=== PATIENT | female | born 1960 | race Caucasian/White ===

== ENCOUNTER 2022-06-01 17:52 | Emergency (ER) | payer BC ==
--- OUTSIDE RECORDS SUMMARY | 2022-06-01 17:56 | XMS REPORT | Continuity of Care Document ---
:1960 Author Organization [facility] t Address [address] [place] [address] Care Team Providers Name Role Phone ALEXY DE LEÓN Primary Care Physician Unavailable Jen Montoya Attending Clinician Unavailable TABATHA ANDERSEN Attending Clinician Unavailable JENIFFER VREGARA Attending Clinician Unavailable RADIOLOGY Attending Clinician Unavailable Radiology Attending Clinician Unavailable TONY VAZQUEZ Attending Clinician Unavailable Alexy De León V Attending Clinician Unavailable JNUIOR HAILE III Attending Clinician Unavailable Doctor Unassigned, [place] Attending Clinician Unavailable ALEXY DE LEÓN Attending Clinician Unavailable Tony Vazquez MD Attending Clinician Jakob Mead DO Attending Clinician Asia Jones MD Attending Clinician Unavailable Alexy De León V Admitting Clinician Unavailable TABATHA ANDERSEN Admitting Clinician Unavailable Payers Payer Name Policy Type Policy Number Effective Date Expiration Date [id number] 2020 00:00:00 [employer] CHOICE POS [id number] 2017 00:00:00 II Problems Condition Condition Condition Status Onset Resolution Last Treating Co mments Source Name Details Category Date Date Treatment Clinician Date Primary Primary Disease Active 2016-10 [facility] hypothyroi hypothyroi 11-16 it y of dism dism 00:00: [place] 00 [facility] Branch Dyslipidem Dyslipidem Disease Active 2016-10 U ghanshyamers ia ia 11-16 ity of 00:00: [place] 00 [facility] Primary Primary Disease Active 2016-10 [facility] hypothyroi hypothyroi 11-16 it y of dism dism 00:00: [place] 00 Medical [facility] Prediabete Prediabete Disease Active U nivers s s 04-30 ity of 00:00: Medical Branch Hypothyroi Hypothyroi Disease Active Overview : Univers dism dism 01-29 Formattin ity of 00:00: g of this 00 note Medical might be Branch different from the original. ICD10 Diagnosis Term Citizen Participation Specialist Utility Vitamin D Vitamin D Disease Active Uni vers deficiency deficiency 01-29 it y of 00:00: [place] [facility] Major Major Disease Active Univers depressive depressive 01-29 it y of disorder disorder 00:00: 00 Medical Branch Impaired Impaired Disease Active Unive rs fasting fasting 01-29 ity of glucose glucose 00:00: Medical Branch Low HDL Low HDL Disease Active Univers (under 40) (under 40) 01-29 it y of 00:00: Medical Branch Elevated Elevated Disease Active Unive rs glucose glucose 01-29 ity of 00:00: 00 Medical Branch Allergies, Adverse Reactions, Alerts Allergy Allergy Status Severity Reaction(s) Onset Inactive Treating Comm ents Source Name Type Date Date Clinician LORATADI DRUG Active Palpitations Un zach NE INGREDI 3- ity of 00:00: [place] 00 Medical Branch Loratadi Propensi Active Palpitations Univers ne ty to 3-01 ity of adverse 00:00: [place] reaction 00 Medical s Branch Hydrocod Propensi Active Palpitations Univers one-Acet ty to 4-06 ity of aminophe adverse 00:00: [place] n reaction 00 Medical s Branch HYDROCOD DRUG Active ITCHING Univers ONE-ACET 4-06 ity of AMINOPHE 00:00: [place] N 00 Medical Branch Social History Social Habit Start Date Stop Date Quantity Comments Source Exposure to 2022-02-16 2022-02-26 Not sure [facility] SARS-CoV-2 (event) 00:00:00 15:56:00 Medica l Branch Tobacco use and 2020-08-07 2020-08-07 Never used [facility] exposure 00:00:00 00:00:00 Medical Branch Sex [birth year] [facility] 00:00:00 00:00:00 Medical Branch Smoking Status Start Date Stop Date Source Current every day smoker 2020-08-07 00:00:00 Uni [facility] Medical [place] Medications Ordered Filled Start Stop Current Ordering Indication Dosage Frequency Signature Comments Components Source Medication Medication Date Date Medication? Clinician (SIG) Name Name gadobenate 2021- No [id number] .2mL/kg 0.2 mL/kg, Univers dimeglumine 03-04-10 Intravenou i ty of (MULTIHANCE 22:00: 21:58 s, ONCE, 1 [place] -15 mL) 00 :00 dose, On Medical injection Tue Branch 0.2 mL/kg 03/04/22 at 1700, Routine naproxen Yes [id number] 500mg Take 1 Un zach (NAPROSYN) 3-01 tablet by ity of 500 mg 00:00: mouth 2 [place] tablet 00 (two) Medical times Branch daily. methocarbam Yes [id number] 500mg Take 1 Univers oL 500 mg 3-01 tablet by ity o f tablet 00:00: mouth 2 [place] 00 (two) Medical times Branch daily. krill-om3-d Yes Take by Uni vers ernst-epa-om6- 4-14 mouth. ity of lip-astx 19:22: [place] (KRILL OIL, 21 Medical OMEGA 3 AND Branch 6,) 1,500-165-6 7.5 mg Cap krill-om3-d Yes Take by Uni vers ernst-epa-om6- 4-14 mouth. ity of lip-astx 19:22: [place] (KRILL OIL, 21 Medical OMEGA 3 AND Branch 6,) 1,500-165-6 7.5 mg Cap krill-om3-d Yes Take by Uni vers ernst-epa-om6- 4-14 mouth. ity of lip-astx 14:22: [place] (KRILL OIL, 21 Medical OMEGA 3 AND Branch 6,) 1,500-165-6 7.5 mg Cap krill-om3-d Yes Take by Uni vers ernst-epa-om6- 4-14 mouth. ity of lip-astx 14:22: (KRILL OIL, 21 Medical OMEGA 3 AND Branch 6,) 1,500-165-6 7.5 mg Cap levothyroxi Yes [id number] Take one Univers ne 150 mcg 4-14 tablet in ity of tablet 00:00: morning on Thursday [facility] Thursday levothyroxi Yes [id number] Take one Univers ne 150 mcg 4-14 tablet in ity of tablet 00:00: morning on [place] Thursday [facility] Thursday levothyroxi Yes [id number] Take one Univers ne 150 mcg 4-14 tablet in ity of tablet 00:00: morning on [place] Thursday [facility] Thursday levothyroxi Yes [id number] Take one Univers ne 150 mcg 4-14 tablet in ity of tablet 00:00: morning on [place] Thursday [facility] Thursday levothyroxi Yes [id number] Take one Univers ne 150 mcg 4-07 tablet in ity of tablet 00:00: morning on [place] Thursday [facility] Thursday levothyroxi Yes [id number] Take one Univers ne 150 mcg 4-07 tablet in ity of tablet 00:00: morning on [place] Thursday [facility] Thursday levothyroxi Yes [id number] Take one Univers ne 150 mcg 4-07 tablet in ity of tablet 00:00: morning on Thursday [facility] Thursday levothyroxi Yes [id number] Take one Univers ne 150 mcg 4-07 tablet in ity of tablet 00:00: morning on [place] Thursday [facility] Thursday levothyroxi 2020- No [id number] Take one Univers ne 150 mcg 4-07 04-14 tablet in ity of tablet 00:00: 00:00 morning on 00 :00 Thursday [facility] Thursday levothyroxi 2020- No [id number] Take one Univers ne 150 mcg 4-07 04-14 tablet in ity of tablet 00:00: 00:00 morning on [facility] 00 :00 Thursday [facility] Thursday levothyroxi 2019-10 Yes [id number] Take one Univers ne 150 mcg 0-13 tablet in ity of tablet 00:00: morning on [place] Thursday [facility] Thursday levothyroxi 2019-10 Yes [id number] Take one Univers ne 150 mcg 0-13 tablet in ity of tablet 00:00: morning on [place] Thursday [facility] Thursday levothyroxi 2019-10 Yes [id number] Take one Univers ne 150 mcg 0-13 tablet in ity of tablet 00:00: morning on [place] Thursday [facility] Thursday levothyroxi 2019-10- No [id number] Take one Univers ne 150 mcg 0-13 04-07 tablet in ity of tablet 00:00: 00:00 morning on [facility] 00 :00 Thursday [facility] Thursday levothyroxi Yes [id number] Take one Univers ne 150 mcg 5-12 tablet in ity of tablet 00:00: morning on [place] Thursday [facility] Thursday levothyroxi Yes [id number] Take one Univers ne 150 mcg 5-12 tablet in ity of tablet 00:00: morning on [place] Thursday [facility] Thursday levothyroxi 2020- No [id number] Take one Univers ne 150 mcg 5-12 10-13 tablet in ity of tablet 00:00: 00:00 morning on [facility] 00 :00 Thursday [facility] Thursday levothyroxi 2020- No [id number] Take one Univers ne 150 mcg 5-12 10-13 tablet in ity of tablet 00:00: 00:00 morning on [facility] 00 :00 Thursday [facility] Thursday levothyroxi 2018-10 Yes [id number] 150ug Take 1 Univers ne 150 mcg 1-12 tablet by ity of tablet 00:00: mouth [place] 00 every Medical morning. [place] levothyroxi 2018-10 2020- No [id number] 150ug Take 1 Univers ne 150 mcg 1-12 05-12 tablet by ity of tablet 00:00: 00:00 mouth [place] 00 :00 every Medical morning. Branch ERGOCALCIFE 2019 Yes 1000U Take 1,000 Univers ROL, 5-07 Units by ity of VITAMIN D2, 16:45: mouth [place] (VITAMIN D 06 daily. Medical ORAL) Branch ESOMEPRAZOL Yes Take by Uni vers E MAGNESIUM 5-07 mouth. ity of (NEXIUM 16:45: [place] 24HR ORAL) 06 Medical Branch krill-om3-d Yes Take by Uni vers ernst-epa-om6- 5-07 mouth. ity of lip-astx 16:45: [place] (KRILL OIL, 06 Medical OMEGA 3 AND Branch 6,) 1,500-165-6 7.5 mg Cap vitamin 2019-0 Yes 1000ug Take 1,000 Un zach B-12 5-07 mcg by ity of (VITAMIN 16:45: mouth [place] B-12) 1,000 06 daily. Medica l mcg tablet Branch aspirin 81 Yes 81mg Take 81 mg U nivers mg tablet 5-07 by mouth ity of 16:45: daily. [place] 06 Medical Branch DULoxetine Yes 60mg Take 60 mg U nivers (CYMBALTA) 5-07 by mouth 2 ity of 60 mg 16:45: (two) [place] capsule 06 times Medical daily. Branch buPROPion Yes 150mg Take 150 Uni vers XL 5-07 mg by ity of (WELLBUTRIN 16:45: mouth [place] XL) 150 mg 06 daily. Medical 24 hr Branch tablet clonazePAM Yes .5mg Take 0.5 Uni vers (KLONOPIN) 5-07 mg by ity of 0.5 mg 16:45: mouth. [place] tablet 06 Half tab Medical in the Branch morning and half tab in the evening ERGOCALCIFE Yes 1000U Take 1,000 Univers ROL, 5-07 Units by ity of VITAMIN D2, 16:45: mouth [place] (VITAMIN D 06 daily. Medical ORAL) Branch ESOMEPRAZOL Yes Take by Uni vers E MAGNESIUM 5-07 mouth. ity of (NEXIUM 16:45: [place] 24HR ORAL) 06 Medical Branch krill-om3-d Yes Take by Uni vers ernst-epa-om6- 5-07 mouth. ity of lip-astx 16:45: [place] (KRILL OIL, 06 Medical OMEGA 3 AND Branch 6,) 1,500-165-6 7.5 mg Cap vitamin 2019-0 Yes 1000ug Take 1,000 Un zach B-12 5-07 mcg by ity of (VITAMIN 16:45: mouth [place] B-12) 1,000 06 daily. Medica l mcg tablet Branch aspirin 81 Yes 81mg Take 81 mg U nivers mg tablet 5-07 by mouth ity of 16:45: daily. Medical Branch DULoxetine Yes 60mg Take 60 mg U nivers (CYMBALTA) 5-07 by mouth 2 ity of 60 mg 16:45: (two) [place] capsule 06 times Medical daily. Branch buPROPion Yes 150mg Take 150 Uni vers XL 5-07 mg by ity of (WELLBUTRIN 16:45: mouth [place] XL) 150 mg 06 daily. Medical 24 hr Branch tablet clonazePAM Yes .5mg Take 0.5 Uni vers (KLONOPIN) 5-07 mg by ity of 0.5 mg 16:45: mouth. [place] tablet 06 Half tab Medical in the Branch morning and half tab in the evening ERGOCALCIFE Yes 1000U Take 1,000 Univers ROL, 5-07 Units by ity of VITAMIN D2, 16:45: mouth [place] (VITAMIN D 06 daily. Medical ORAL) Branch ESOMEPRAZOL Yes Take by Uni vers E MAGNESIUM 5-07 mouth. ity of (NEXIUM 16:45: [place] 24HR ORAL) 06 Medical Branch krill-om3-d Yes Take by Uni vers ernst-epa-om6- 5-07 mouth. ity of lip-astx 16:45: [place] (KRILL OIL, 06 Medical OMEGA 3 AND Branch 6,) 1,500-165-6 7.5 mg Cap vitamin 2019-0 Yes 1000ug Take 1,000 Un zach B-12 5-07 mcg by ity of (VITAMIN 16:45: mouth [place] B-12) 1,000 06 daily. Medica l mcg tablet Branch aspirin 81 Yes 81mg Take 81 mg U nivers mg tablet 5-07 by mouth ity of 16:45: daily. Medical Branch DULoxetine Yes 60mg Take 60 mg U nivers (CYMBALTA) 5-07 by mouth 2 ity of 60 mg 16:45: (two) [place] capsule 06 times Medical daily. Branch buPROPion Yes 150mg Take 150 Uni vers XL 5-07 mg by ity of (WELLBUTRIN 16:45: mouth [place] XL) 150 mg 06 daily. Medical 24 hr Branch tablet clonazePAM Yes .5mg Take 0.5 Uni vers (KLONOPIN) 5-07 mg by ity of 0.5 mg 16:45: mouth. [place] tablet 06 Half tab Medical in the Branch morning and half tab in the evening ERGOCALCIFE Yes 1000U Take 1,000 Univers ROL, 5-07 Units by ity of VITAMIN D2, 16:45: mouth [place] (VITAMIN D 06 daily. Medical ORAL) Branch ESOMEPRAZOL Yes Take by Uni vers E MAGNESIUM 5-07 mouth. ity of (NEXIUM 16:45: [place] 24HR ORAL) 06 Medical Branch krill-om3-d Yes Take by Uni vers ernst-epa-om6- 5-07 mouth. ity of lip-astx 16:45: [place] (KRILL OIL, 06 Medical OMEGA 3 AND Branch 6,) 1,500-165-6 7.5 mg Cap vitamin Yes 1000ug Take 1,000 Un zach B-12 5-07 mcg by ity of (VITAMIN 16:45: mouth [place] B-12) 1,000 06 daily. Medica l mcg tablet Branch aspirin 81 Yes 81mg Take 81 mg U nivers mg tablet 5-07 by mouth ity of 16:45: daily. [place] 06 Medical Branch DULoxetine Yes 60mg Take 60 mg U nivers (CYMBALTA) 5-07 by mouth 2 ity of 60 mg 16:45: (two) [place] capsule 06 times Medical daily. Branch buPROPion Yes 150mg Take 150 Uni vers XL 5-07 mg by ity of (WELLBUTRIN 16:45: mouth [place] XL) 150 mg 06 daily. Medical 24 hr Branch tablet clonazePAM Yes .5mg Take 0.5 Uni vers (KLONOPIN) 5-07 mg by ity of 0.5 mg 16:45: mouth. [place] tablet 06 Half tab Medical in the Branch morning and half tab in the evening ERGOCALCIFE Yes 1000U Take 1,000 Univers ROL, 5-07 Units by ity of VITAMIN D2, 16:45: mouth [place] (VITAMIN D 06 daily. Medical ORAL) Branch ESOMEPRAZOL Yes Take by Uni vers E MAGNESIUM 5-07 mouth. ity of (NEXIUM 16:45: [place] 24HR ORAL) 06 Medical Branch krill-om3-d Yes Take by Uni vers ernst-epa-om6- 5-07 mouth. ity of lip-astx 16:45: [place] (KRILL OIL, 06 Medical OMEGA 3 AND Branch 6,) 1,500-165-6 7.5 mg Cap vitamin 2019-0 Yes 1000ug Take 1,000 Un zach B-12 5-07 mcg by ity of (VITAMIN 16:45: mouth [place] B-12) 1,000 06 daily. Medica l mcg tablet Branch aspirin 81 Yes 81mg Take 81 mg U nivers mg tablet 5-07 by mouth ity of 16:45: daily. [place] 06 Medical Branch DULoxetine Yes 60mg Take 60 mg U nivers (CYMBALTA) 5-07 by mouth 2 ity of 60 mg 16:45: (two) [place] capsule 06 times Medical daily. Branch buPROPion Yes 150mg Take 150 Uni vers XL 5-07 mg by ity of (WELLBUTRIN 16:45: mouth [place] XL) 150 mg 06 daily. Medical 24 hr Branch tablet clonazePAM Yes .5mg Take 0.5 Uni vers (KLONOPIN) 5-07 mg by ity of 0.5 mg 16:45: mouth. [place] tablet 06 Half tab Medical in the Branch morning and half tab in the evening ERGOCALCIFE Yes 1000U Take 1,000 Univers ROL, 5-07 Units by ity of VITAMIN D2, 16:45: mouth [place] (VITAMIN D 06 daily. Medical ORAL) Branch ESOMEPRAZOL Yes Take by Uni vers E MAGNESIUM 5-07 mouth. ity of (NEXIUM 16:45: [place] 24HR ORAL) 06 Medical Branch krill-om3-d Yes Take by Uni vers ernst-epa-om6- 5-07 mouth. ity of lip-astx 16:45: [place] (KRILL OIL, 06 Medical OMEGA 3 AND Branch 6,) 1,500-165-6 7.5 mg Cap vitamin 2019-0 Yes 1000ug Take 1,000 Un zach B-12 5-07 mcg by ity of (VITAMIN 16:45: mouth [place] B-12) 1,000 06 daily. Medica l mcg tablet Branch aspirin 81 Yes 81mg Take 81 mg U nivers mg tablet 5-07 by mouth ity of 16:45: daily. Medical Branch DULoxetine Yes 60mg Take 60 mg U nivers (CYMBALTA) 5-07 by mouth 2 ity of 60 mg 16:45: (two) [place] capsule 06 times Medical daily. Branch buPROPion Yes 150mg Take 150 Uni vers XL 5-07 mg by ity of (WELLBUTRIN 16:45: mouth [place] XL) 150 mg 06 daily. Medical 24 hr Branch tablet clonazePAM Yes .5mg Take 0.5 Uni vers (KLONOPIN) 5-07 mg by ity of 0.5 mg 16:45: mouth. [place] tablet 06 Half tab Medical in the Branch morning and half tab in the evening ERGOCALCIFE Yes 1000U Take 1,000 Univers ROL, 5-07 Units by ity of VITAMIN D2, 16:45: mouth [place] (VITAMIN D 06 daily. Medical ORAL) Branch ESOMEPRAZOL 0 Yes Take by Uni vers E MAGNESIUM 5-07 mouth. ity of (NEXIUM 16:45: [place] 24HR ORAL) 06 Medical Branch krill-om3-d Yes Take by Uni vers ernst-epa-om6- 5-07 mouth. ity of lip-astx 16:45: [place] (KRILL OIL, 06 Medical OMEGA 3 AND Branch 6,) 1,500-165-6 7.5 mg Cap vitamin 2019-0 Yes 1000ug Take 1,000 Un zach B-12 5-07 mcg by ity of (VITAMIN 16:45: mouth [place] B-12) 1,000 06 daily. Medica l mcg tablet Branch aspirin 81 Yes 81mg Take 81 mg U nivers mg tablet 5-07 by mouth ity of 16:45: daily. Medical Branch DULoxetine Yes 60mg Take 60 mg U nivers (CYMBALTA) 5-07 by mouth 2 ity of 60 mg 16:45: (two) [place] capsule 06 times Medical daily. Branch buPROPion Yes 150mg Take 150 Uni vers XL 5-07 mg by ity of (WELLBUTRIN 16:45: mouth [place] XL) 150 mg 06 daily. Medical 24 hr Branch tablet clonazePAM Yes .5mg Take 0.5 Uni vers (KLONOPIN) 5-07 mg by ity of 0.5 mg 16:45: mouth. [place] tablet 06 Half tab Medical in the Branch morning and half tab in the evening ERGOCALCIFE Yes 1000U Take 1,000 Univers ROL, 5-07 Units by ity of VITAMIN D2, 16:45: mouth [place] (VITAMIN D 06 daily. Medical ORAL) Branch ESOMEPRAZOL Yes Take by Uni vers E MAGNESIUM 5-07 mouth. ity of (NEXIUM 16:45: [place] 24HR ORAL) 06 Medical [place] vitamin Yes 1000ug Take 1,000 Un zach B-12 5-07 mcg by ity of (VITAMIN 16:45: mouth [place] B-12) 1,000 06 daily. Medica l mcg tablet Branch aspirin 81 Yes 81mg Take 81 mg U nivers mg tablet 5-07 by mouth ity of 16:45: daily. [place] 06 Medical Branch DULoxetine Yes 60mg Take 60 mg U nivers (CYMBALTA) 5-07 by mouth 2 ity of 60 mg 16:45: (two) [place] capsule 06 times Medical daily. Branch buPROPion Yes 150mg Take 150 Uni vers XL 5-07 mg by ity of (WELLBUTRIN 16:45: mouth [place] XL) 150 mg 06 daily. Medical 24 hr Branch tablet clonazePAM Yes .5mg Take 0.5 Uni vers (KLONOPIN) 5-07 mg by ity of 0.5 mg 16:45: mouth. [place] tablet 06 Half tab Medical in the Branch morning and half tab in the evening ERGOCALCIFE Yes 1000U Take 1,000 Univers ROL, 5-07 Units by ity of VITAMIN D2, 16:45: mouth [place] (VITAMIN D 06 daily. Medical ORAL) Branch ESOMEPRAZOL Yes Take by Uni vers E MAGNESIUM 5-07 mouth. ity of (NEXIUM 16:45: [place] 24HR ORAL) 06 Medical Branch vitamin 2019-0 Yes 1000ug Take 1,000 Un zach B-12 5-07 mcg by ity of (VITAMIN 16:45: mouth [place] B-12) 1,000 06 daily. Medica l mcg tablet Branch aspirin 81 Yes 81mg Take 81 mg U nivers mg tablet 5-07 by mouth ity of 16:45: daily. [place] Medical Branch DULoxetine Yes 60mg Take 60 mg U nivers (CYMBALTA) 5-07 by mouth 2 ity of 60 mg 16:45: (two) [place] capsule 06 times Medical daily. Branch buPROPion Yes 150mg Take 150 Uni vers XL 5-07 mg by ity of (WELLBUTRIN 16:45: mouth [place] XL) 150 mg 06 daily. Medical 24 hr Branch tablet clonazePAM Yes .5mg Take 0.5 Uni vers (KLONOPIN) 5-07 mg by ity of 0.5 mg 16:45: mouth. [place] tablet 06 Half tab Medical in the Branch morning and half tab in the evening ERGOCALCIFE Yes 1000U Take 1,000 Univers ROL, 5-07 Units by ity of VITAMIN D2, 16:45: mouth [place] (VITAMIN D 06 daily. Medical ORAL) Branch ESOMEPRAZOL Yes Take by Uni vers E MAGNESIUM 5-07 mouth. ity of (NEXIUM 16:45: [place] 24HR ORAL) 06 Medical Branch krill-om3-d Yes Take by Uni vers ernst-epa-om6- 5-07 mouth. ity of lip-astx 16:45: [place] (KRILL OIL, 06 Medical OMEGA 3 AND Branch 6,) 1,500-165-6 7.5 mg Cap vitamin 2019-0 Yes 1000ug Take 1,000 Un zach B-12 5-07 mcg by ity of (VITAMIN 16:45: mouth [place] B-12) 1,000 06 daily. Medica l mcg tablet Branch aspirin 81 Yes 81mg Take 81 mg U nivers mg tablet 5-07 by mouth ity of 16:45: daily. [place] 06 Medical Branch DULoxetine Yes 60mg Take 60 mg U nivers (CYMBALTA) 5-07 by mouth 2 ity of 60 mg 16:45: (two) [place] capsule 06 times Medical daily. Branch buPROPion Yes 150mg Take 150 Uni vers XL 5-07 mg by ity of (WELLBUTRIN 16:45: mouth [place] XL) 150 mg 06 daily. Medical 24 hr Branch tablet clonazePAM Yes .5mg Take 0.5 Uni vers (KLONOPIN) 5-07 mg by ity of 0.5 mg 16:45: mouth. [place] tablet 06 Half tab Medical in the Branch morning and half tab in the evening ERGOCALCIFE Yes 1000U Take 1,000 Univers ROL, 5-07 Units by ity of VITAMIN D2, 16:45: mouth [place] (VITAMIN D 06 daily. Medical ORAL) Branch ESOMEPRAZOL Yes Take by Uni vers E MAGNESIUM 5-07 mouth. ity of (NEXIUM 16:45: [place] 24HR ORAL) 06 Medical Branch krill-om3-d Yes Take by Uni vers ernst-epa-om6- 5-07 mouth. ity of lip-astx 16:45: [place] (KRILL OIL, 06 Medical OMEGA 3 AND Branch 6,) 1,500-165-6 7.5 mg Cap vitamin Yes 1000ug Take 1,000 Un zach B-12 5-07 mcg by ity of (VITAMIN 16:45: mouth [place] B-12) 1,000 06 daily. Medica l mcg tablet Branch aspirin 81 Yes 81mg Take 81 mg U nivers mg tablet 5-07 by mouth ity of 16:45: daily. [place] 06 Medical Branch DULoxetine Yes 60mg Take 60 mg U nivers (CYMBALTA) 5-07 by mouth 2 ity of 60 mg 16:45: (two) [place] capsule 06 times Medical daily. Branch buPROPion Yes 150mg Take 150 Uni vers XL 5-07 mg by ity of (WELLBUTRIN 16:45: mouth [place] XL) 150 mg 06 daily. Medical 24 hr Branch tablet clonazePAM Yes .5mg Take 0.5 Uni vers (KLONOPIN) 5-07 mg by ity of 0.5 mg 16:45: mouth. [place] tablet 06 Half tab Medical in the Branch morning and half tab in the evening ERGOCALCIFE Yes 1000U Take 1,000 Univers ROL, 5-07 Units by ity of VITAMIN D2, 16:45: mouth [place] (VITAMIN D 06 daily. Medical ORAL) Branch ESOMEPRAZOL 2018- Yes Take by Uni vers E MAGNESIUM 5-07 mouth. ity of (NEXIUM 16:45: [place] 24HR ORAL) 06 Medical Branch krill-om3-d 2018-0 Yes Take by Uni vers ernst-epa-om6- 5-07 mouth. ity of lip-astx 16:45: [place] (KRILL OIL, 06 Medical OMEGA 3 AND Branch 6,) 1,500-165-6 7.5 mg Cap vitamin 2019-0 Yes 1000ug Take 1,000 Un zach B-12 5-07 mcg by ity of (VITAMIN 16:45: mouth [place] B-12) 1,000 06 daily. Medica l mcg tablet Branch aspirin 81 Yes 81mg Take 81 mg U nivers mg tablet 5-07 by mouth ity of 16:45: daily. [place] 06 Medical Branch DULoxetine Yes 60mg Take 60 mg U nivers (CYMBALTA) 5-07 by mouth 2 ity of 60 mg 16:45: (two) [place] capsule 06 times Medical daily. Branch buPROPion Yes 150mg Take 150 Uni vers XL 5-07 mg by ity of (WELLBUTRIN 16:45: mouth [place] XL) 150 mg 06 daily. Medical 24 hr Branch tablet clonazePAM Yes .5mg Take 0.5 Uni vers (KLONOPIN) 5-07 mg by ity of 0.5 mg 16:45: mouth. [place] tablet 06 Half tab Medical in the Branch morning and half tab in the evening ERGOCALCIFE Yes 1000U Take 1,000 Univers ROL, 5-07 Units by ity of VITAMIN D2, 16:45: mouth [place] (VITAMIN D 06 daily. Medical ORAL) Branch ESOMEPRAZOL 2018- Yes Take by Uni vers E MAGNESIUM 5-07 mouth. ity of (NEXIUM 16:45: [place] 24HR ORAL) 06 Medical Branch krill-om3-d 2018-0 Yes Take by Uni vers ernst-epa-om6- 5-07 mouth. ity of lip-astx 16:45: [place] (KRILL OIL, 06 Medical OMEGA 3 AND Branch 6,) 1,500-165-6 7.5 mg Cap vitamin 2019-0 Yes 1000ug Take 1,000 Un zach B-12 5-07 mcg by ity of (VITAMIN 16:45: mouth [place] B-12) 1,000 06 daily. Medica l mcg tablet Branch aspirin 81 Yes 81mg Take 81 mg U nivers mg tablet 5-07 by mouth ity of 16:45: daily. Medical Branch DULoxetine Yes 60mg Take 60 mg U nivers (CYMBALTA) 5-07 by mouth 2 ity of 60 mg 16:45: (two) [place] capsule 06 times Medical daily. Branch buPROPion Yes 150mg Take 150 Uni vers XL 5-07 mg by ity of (WELLBUTRIN 16:45: mouth [place] XL) 150 mg 06 daily. Medical 24 hr Branch tablet clonazePAM Yes .5mg Take 0.5 Uni vers (KLONOPIN) 5-07 mg by ity of 0.5 mg 16:45: mouth. [place] tablet 06 Half tab Medical in the Branch morning and half tab in the evening aspirin 81 Yes 81mg Take 81 mg U nivers mg tablet 5-07 by mouth ity of 11:45: daily. Medical Branch DULoxetine Yes 60mg Take 60 mg U nivers (CYMBALTA) 5-07 by mouth 2 ity of 60 mg 11:45: (two) [place] capsule 06 times Medical daily. Branch buPROPion Yes 150mg Take 150 Uni vers XL 5-07 mg by ity of (WELLBUTRIN 11:45: mouth [place] XL) 150 mg 06 daily. Medical 24 hr Branch tablet clonazePAM Yes .5mg Take 0.5 Uni vers (KLONOPIN) 5-07 mg by ity of 0.5 mg 11:45: mouth. [place] tablet 06 Half tab Medical in the Branch morning and half tab in the evening ERGOCALCIFE Yes 1000U Take 1,000 Univers ROL, 5-07 Units by ity of VITAMIN D2, 11:45: mouth [place] (VITAMIN D 06 daily. Medical ORAL) [place] ESOMEPRAZOL Yes Take by Uni vers E MAGNESIUM 5-07 mouth. ity of (NEXIUM 11:45: [place] 24HR ORAL) 06 Medical Branch vitamin Yes 1000ug Take 1,000 Un zach B-12 5-07 mcg by ity of (VITAMIN 11:45: mouth [place] B-12) 1,000 06 daily. Medica l mcg tablet Branch aspirin 81 Yes 81mg Take 81 mg U nivers mg tablet 5-07 by mouth ity of 11:45: daily. [place] 06 Medical Branch DULoxetine Yes 60mg Take 60 mg U nivers (CYMBALTA) 5-07 by mouth 2 ity of 60 mg 11:45: (two) [place] capsule 06 times Medical daily. Branch buPROPion Yes 150mg Take 150 Uni vers XL 5-07 mg by ity of (WELLBUTRIN 11:45: mouth [place] XL) 150 mg 06 daily. Medical 24 hr Branch tablet clonazePAM Yes .5mg Take 0.5 Uni vers (KLONOPIN) 5-07 mg by ity of 0.5 mg 11:45: mouth. [place] tablet 06 Half tab Medical in the Branch morning and half tab in the evening ERGOCALCIFE Yes 1000U Take 1,000 Univers ROL, 5-07 Units by ity of VITAMIN D2, 11:45: mouth [place] (VITAMIN D 06 daily. Medical ORAL) [place] ESOMEPRAZOL Yes Take by Uni vers E MAGNESIUM 5-07 mouth. ity of (NEXIUM 11:45: [place] 24HR ORAL) 06 [facility] vitamin Yes 1000ug Take 1,000 Un zach B-12 5-07 mcg by ity of (VITAMIN 11:45: mouth [place] B-12) 1,000 06 daily. Medica l mcg tablet Branch folic acid 2016-10 Yes Take by [facility] ers 0.8 mg Cap 1-22 mouth. ity of 15:41: [address] folic acid 2016-10 Yes Take by Univ ers 0.8 mg Cap 1-22 mouth. ity of 15:41: [address] folic acid 2016-10 Yes Take by [facility] ers 0.8 mg Cap 1-22 mouth. ity of 15:41: [address] folic acid 2016-10 Yes Take by Univ ers 0.8 mg Cap 1-22 mouth. ity of 15:41: [address] folic acid 2016-10 Yes Take by Univ ers 0.8 mg Cap 1-22 mouth. ity of 15:41: [address] folic acid 2016-10 Yes Take by Univ ers 0.8 mg Cap 1-22 mouth. ity of 15:41: [address] folic acid 2016-10 Yes Take by Univ ers 0.8 mg Cap 1-22 mouth. ity of 15:41: [address] folic acid 2016-10 Yes Take by Univ ers 0.8 mg Cap 1-22 mouth. ity of 15:41: [address] folic acid 2016-10 Yes Take by Univ ers 0.8 mg Cap 1-22 mouth. ity of 15:41: [address] folic acid 2016-10 Yes Take by Univ ers 0.8 mg Cap 1-22 mouth. ity of 15:41: [address] folic acid 2016-10 Yes Take by Univ ers 0.8 mg Cap 1-22 mouth. ity of 15:41: [address] folic acid 2016-10 Yes Take by Univ ers 0.8 mg Cap 1-22 mouth. ity of 15:41: [address] folic acid 2016-10 Yes Take by Univ ers 0.8 mg Cap 1-22 mouth. ity of 15:41: [address] folic acid 2016-10 Yes Take by Univ ers 0.8 mg Cap 1-22 mouth. ity of 09:41: [address] folic acid 2016-10 Yes Take by Univ ers 0.8 mg Cap 1-22 mouth. ity of 09:41: [address] blood sugar Yes daily. Use Univers diagnostic 7-07 as ity of (ONE TOUCH 00:00: directed Jaden as ULTRA TEST) 00 [facility] blood sugar Yes daily. Use Univers diagnostic 7-07 as ity of (ONE TOUCH 00:00: directed Jaden as ULTRA TEST) 00 Medical [facility] blood sugar Yes daily. Use Univers diagnostic 7-07 as ity of (ONE TOUCH 00:00: directed Jaden as ULTRA TEST) 00 Medical strip Branch blood sugar Yes daily. Use Univers diagnostic 7-07 as ity of (ONE TOUCH 00:00: directed Jaden as ULTRA TEST) Medical strip Branch blood sugar Yes daily. Use Univers diagnostic 7-07 as ity of (ONE TOUCH 00:00: directed Jaden as ULTRA TEST) 00 Medical strip [place] blood sugar Yes daily. Use Univers diagnostic 7-07 as ity of (ONE TOUCH 00:00: directed Jaden as ULTRA TEST) 00 Medical strip Branch blood sugar 0 Yes daily. Use Univers diagnostic 7-07 as ity of (ONE TOUCH 00:00: directed Jaden as ULTRA TEST) 00 Medical strip Branch blood sugar Yes daily. Use Univers diagnostic 7-07 as ity of (ONE TOUCH 00:00: directed Jaden as ULTRA TEST) 00 Medical strip [facility] blood sugar 0 Yes daily. Use Univers diagnostic 7-07 as ity of (ONE TOUCH 00:00: directed Jaden as ULTRA TEST) 00 Medical strip [place] blood sugar Yes daily. Use Univers diagnostic 7-07 as ity of (ONE TOUCH 00:00: directed Jaden as ULTRA TEST) 00 Medical strip [place] blood sugar Yes daily. Use Univers diagnostic 7-07 as ity of (ONE TOUCH 00:00: directed Jaden as ULTRA TEST) 00 Medical strip [place] blood sugar Yes daily. Use Univers diagnostic 7-07 as ity of (ONE TOUCH 00:00: directed Jaden as ULTRA TEST) 00 Medical strip [place] blood sugar Yes daily. Use Univers diagnostic 7-07 as ity of (ONE TOUCH 00:00: directed Jaden as ULTRA TEST) 00 Medical strip [facility] blood sugar Yes daily. Use Univers diagnostic 7-07 as ity of (ONE TOUCH 00:00: directed Jaden as ULTRA TEST) 00 Medical strip [facility] blood sugar Yes daily. Use Univers diagnostic 7-07 as ity of (ONE TOUCH 00:00: directed Jaden as ULTRA TEST) 00 Medical strip Branch Immunizations Ordered Filled Immunization Date Status Comments [facility] e Immunization Name Name SARS-COV-2 COVID-19 2021-02-01 Completed Unive rsity of PFIZER VACCINE 00:00:00 [facility] SARS-COV-2 COVID-19 2021-02-01 Completed Unive rsity of PFIZER VACCINE 00:00:00 [facility] SARS-COV-2 COVID-19 2021-01-09 Completed Unive rsity of PFIZER VACCINE 00:00:00 [facility] SARS-COV-2 COVID-19 2021-01-09 Completed Unive rsity of PFIZER VACCINE 00:00:00 [facility] Vital Signs Vital Name Observation Time Observation Value Comments Source Systolic blood 2021-02-06 19:20:00 121 mm[Hg] Univer sity of [facility] Diastolic blood 2021-02-06 19:20:00 83 mm[Hg] Unive rsity of [facility] Heart rate 2021-02-06 19:20:00 81 /min Universi ty [facility] Body height 2021-02-06 19:20:00 162.6 cm Universi ty of [facility] Body weight 2021-02-06 19:20:00 73.12 kg Universi ty [facility] Branch BMI 2021-02-06 19:20:00 27.67 kg/m2 Universi ty [facility] Oxygen saturation 2021-02-06 19:20:00 96 /min [facility] in Arterial blood Medical Br anch by Pulse oximetry Systolic blood 2020-08-07 15:00:00 137 mm[facility]Hg[facility] Diastolic blood 2020-08-07 15:00:00 85 [facility]Hg[facility] 2020-08-07 15:00:00 77 /min Universi ty [facility] Body height 2020-08-07 15:00:00 162.6 cm Universi ty [facility] Body weight 2020-08-07 15:00:00 71.668 kg Universi ty [facility] BMI 2020-08-07 15:00:00 27.12 kg/m2 Universi ty [facility] Body weight 2020-03-06 16:08:00 70.761 kg Universi ty [facility] BMI 2020-03-06 16:08:00 25.96 kg/m2 Universi ty [facility] Procedures Procedure Date / Time Performed Performing Clinician [facility] e ASSIGNMENT OF BENEFITS 2021-12-24 15:54:06 Doctor Unassigned, No [facility] Branch HEMOGLOBIN A1C-Q 2021-02-05 19:09:00 George [facility] T-4, FREE-Q 2020-08-02 17:55:00 [facility] TSH, 3RD GENERATION-Q 2020-08-02 17:55:[address] [facility] T3, FREE-Q 2020-08-02 17:55:00 [facility] Encounters Start End Encounter Admission Attending Care Care Encounter Source Date/Time Date/Time Type Type Clinicians Facility Department ID 2022-01-31 Inpatient VEDA Montoya, HCACL HCACL [id number] [facility] 08:00:00 Jen Regla [facility] 2022-05-29 2022-05-29 Outpatient GANESH, [facility] [id number] [place] 00:00:00 00:00:00 TABATHA [address] 2022-05-29 2022-05-29 Outpatient ANDERSEN, [facility] [id number] [place] 00:00:00 00:00:00 TABATHA [address] 2022-05-23 2022-05-23 Outpatient ANDERSEN, [facility] [id number] [place] 00:00:00 00:00:00 TABATHA [address] 2022-05-23 2022-05-23 Outpatient ANDERSEN, [facility] [id number] [place] 00:00:00 00:00:00 TABATHA 824 [facility] i 2022-05-16 2022-05-16 Outpatient ANDERSEN, [facility] [id number] [place] 00:00:00 00:00:00 TABATHA [address] 2022-05-14 2022-05-14 Outpatient JAI, [facility] [id number] [place] 00:00:00 00:00:00 JENIFFER [address] 2022-05-14 2022-05-14 Outpatient JAI, [facility] [id number] [place] 00:00:00 00:00:00 JENIFFER 350 [facility] i 2022-05-14 2022-05-14 Outpatient JAI, [facility] [id number] [place] 00:00:00 00:00:00 JENIFFER [address] 2022-05-14 2022-05-14 Outpatient JAI, [facility] [id number] [place] 00:00:00 00:00:00 JENIFFER [address] 2022-05-14 2022-05-14 Outpatient JAI, [facility] [id number] [place] 00:00:00 00:00:00 JENIFFER [address] 2022-05-14 2022-05-14 Outpatient JAI, [facility] [id number] [place] 00:00:00 00:00:00 JENIFFER [address] 2022-05-14 2022-05-14 Outpatient JAI, [facility] [id number] [place] 00:00:00 00:00:00 JENIFFER [address] 2022-05-13 2022-05-13 Outpatient JAI, [facility] [id number] [place] 00:00:00 00:00:00 JENIFFER [address] 2022-05-08 2022-05-08 Outpatient GANESH, [facility] [id number] [place] 00:00:00 00:00:00 TABATHA [address] 2022-05-08 2022-05-08 Outpatient ANDERSEN, [facility] [id number] [place] 00:00:00 00:00:00 TABATHA [address] 2022-05-08 2022-05-08 Outpatient ANDERSEN, [facility] [id number] [place] 00:00:00 00:00:00 TABATHA [address] 2022-04-29 2022-04-29 Outpatient ANDERSEN, [facility] [id number] [place] 00:00:00 00:00:00 TABATHA [address] 2022-04-17 2022-04-17 Outpatient ANDERSEN, [facility] [id number] [place] 00:00:00 00:00:00 TABATHA [address] 2022-04-17 2022-04-17 Outpatient ANDERSEN, [facility] [id number] [place] 00:00:00 00:00:00 TABATHA [address] 2022-04-15 2022-04-15 Outpatient [facility] [id number] [place] 00:00:00 00:00:[address] 2022-04-02 2022-04-02 Outpatient ANDERSEN, [facility] [id number] [place] 00:00:00 00:00:00 TABATHA [address] 2022-03-27 2022-03-27 Outpatient ANDERSEN, [facility] [id number] [place] 00:00:00 00:00:00 TABATHA [address] 2022-03-27 2022-03-27 Outpatient GANESH, [facility] [id number] [place] 00:00:00 00:00:00 TABATHA [address] 2022-03-06 2022-03-06 Outpatient ANDERSEN, [facility] [id number] [place] 00:00:00 00:00:00 TABATHA 215 [facility] 2022-03-06 2022-03-06 Outpatient GANESH [facility] [id number] [place] 00:00:00 00:00:00 TABATHA 587 [facility] 2022-03-04 2022-03-04 Outpatient R RADIOLOGY [facility] [id number] Univers 12:40:19 23:59:00 ity [facility] 2022-03-04 2022-03-04 Hospital Radiology [facility] 1.2.840.114 [id number] Univers 12:40:19 23:59:00 Encounter [place] [id number] ity [facility] 4.2.7.2.686 [facility] [id number] [facility] 804 [place] 2022-03-04 2022-03-04 Outpatient R RADIOLOGY [facility] [id number] Univers 13:00:00 13:00:00 [id number] ity [facility] 2022-02-14 2022-02-14 Outpatient GANESH [facility] [id number] [place] 00:00:00 00:00:00 TABATHA 268 [facility] i 2022-02-14 2022-02-14 Outpatient [facility] [id number] [place] 00:00:00 00:00:00 899 [facility] 2022-02-12 2022-02-12 Outpatient GANESH [facility] [id number] [place] 00:00:00 00:00:00 TABATHA 151 [facility] i 2022-02-06 2022-02-06 Outpatient GANESH [facility] [id number] [place] 00:00:00 00:00:00 TABATHA 515 [facility] 2022-02-06 2022-02-06 Outpatient GANESH [facility] [id number] [place] 00:00:00 00:00:00 TBAATHA 517 [facility] 2022-02-06 2022-02-06 Outpatient GANESH [facility] [id number] [place] 00:00:00 00:00:00 TABATHA 516 [facility] i 2022-02-06 2022-02-06 Outpatient GANESH [facility] [id number] [place] 00:00:00 00:00:00 TABATHA 518 [facility] i 2022-02-05 2022-02-05 Outpatient R VAZQUEZ, [facility] [id number] Univers 10:00:00 10:00:00 TONY [id number] [facility] 2022-02-05 2022-02-05 Outpatient R GEORGE [facility] [id number] Univers 10:00:00 10:00:00 NAVINONG [facility] 2022-01-31 2022-01-31 Inpatient VEDA Montoya, HCACL RMRI [id number] [facility] 08:00:00 08:00:00 Jen [id number] [facility] 2022-01-31 2022-01-31 Outpatient GANESH, [facility] [id number] [place] 00:00:00 00:00:00 TABATHA [address] 2022-01-31 2022-01-31 Outpatient GANESH, [facility] [id number] [place] 00:00:00 00:00:00 TABATHA [address] 2022-01-28 2022-01-28 Outpatient Lindsay, HCACL HCACL [id number] [facility] 08:16:00 08:16:00 Jen [id number] [facility] 2022-01-13 2022-01-13 Outpatient VEDA De León, HCAWH NANETTE [id number] [facility] 12:00:00 12:00:00 Alexy [id number] [facility] 2022-01-13 2022-01-13 Out[facility] De Le[facility] [id number] [facility] 12:00:00 12:00:00 Alexy [address] [facility] 2022-01-09 2022-01-09 Outpatient VEDA De León, [facility] NANETTE [id number] [facility] 12:00:00 12:00:00 Alexy [id number] [facility] [place] 2021-12-24 2021-12-24 Outpatient R [facility] [id number] Univers 10:00:00 10:00:00 [id number] [facility] 2021-12-24 2021-12-24 Outpatient R KING CANDICE, [facility] [id number] Univers 10:00:00 10:00:00 JUNIOR [facility] 2021-12-24 2021-12-24 Orders Doctor GAYLA 1.2.840.114 [id number] Univers 00:00:00 00:00:00 Only Unassigned, NOEL 350.1.13.10 ity of [facility] 4.2.7.2.686 Jaden as [phone] [address] 2021-05-28 2021-05-28 Outpatient NEVAEH, [facility] [id number] [place] 00:00:00 00:00:00 ALEXY [address] 2021-05-28 2021-05-28 Outpatient NEVAEH, [facility] [id number] [place] 00:00:00 00:00:00 ALEXY 653 Method i 2021-02-06 2021-02-06 Office George [facility] 1.2.840.114 [id number] Univers 13:54:53 14:49:38 Visit Tony Wan [id number] i ty [facility] [place]2.7.2.[place] [phone] Me dical [address] 2021-02-06 2021-02-06 Outpatient R GEORGE, [facility] [id number] Univers 14:00:00 14:00:00 NAVINONG [id number] ity [facility] 2021-02-06 2021-02-06 Outpatient R GEORGE, [facility] [id number] Univers 14:00:00 14:00:00 NAVINONG ity [facility] 2021-02-05 2021-02-05 Outpatient R GEORGE, [facility] [id number] Univers 11:00:00 11:00:00 NAVINONG [id number] ity [facility] 2021-02-05 2021-02-05 [facility] [id number] Univers 11:00:00 11:00:00 NAVINONG [facility] 2021-02-05 2021-02-05 Patient George [facility] 1.2.840.114 [id number] Univers 00:00:00 00:00:00 Secure Msg Tony Aldridgeton [id number] ity [facility] 4[place]7.2.[place] [phone] Me dical nal [address] [facility] 2021-02-05 2021-02-05 Orders GAYLA Vazquez 1.2.840.114 [id number] Univers 00:00:00 00:00:00 Only oTny COHEN 350.1.13.10 it y of [facility] 4.2.7.2.686 Jaden as [phone] [place] [address] Branch 2021-02-01 2021-02-01 [facility]phone [facility] [id number] Univers 00:00:00 00:00:00 Tony Wan 350.1.13.10 i ty of [place].2.[place] [phone] Md dicpr nal [address] [facility] 2021-01-25 2021-01-25 Refill [facility] 1.2.840.114 [id number] Univers 00:00:00 00:00:00 Navinashlyn Aldridgeton 350.1.13.10 i ty of [place]2.[place].2.[place] [phone] [facility] [address] [facility] 2021-01-05 2021-01-05 Patient [place] [facility] 1.2.840.114 [id number] Univers 00:00:00 00:00:00 Outreach Jakob PRIMARY 350.1.13.10 i ty of [facility] [place]2.7.2.686 [place] [phone] [address] 2020-08-07 2020-08-07 Office [facility] 1.2.840.114 [id number] Univers 09:58:39 10:50:05 Visit Tony [place] 350.1.13.10 i ty of [place] 4[place]2.7.2.[place] [phone] [facility] [address] [facility] 2020-08-07 2020-08-07 Outpatient R GEORGE [facility] [id number] Univers 10:00:00 10:00:00 TONY [id number] ity [facility] 2020-08-07 2020-08-07 Outpatient R GEORGE [facility] [id number] Univers 10:00:00 10:00:00 TONY ity [facility] 2020-08-02 2020-08-02 Orders GAYLA Vazquez 1.2.840.114 [id number] Univers 00:00:00 00:00:00 Only Tony COHEN 350.1.13.10 it y of [facility] 4.2.7.2.686 Jaden as [phone] [address] 2020-03-06 2020-03-06 [facility] [id number] Univers 11:00:00 11:00:00 TONY ity [facility] 2020-03-06 2020-03-06 Telemedici [facility] 1.2.840.114 [id number] Univers 08:04:40 08:34:40 ne Visit Tony Wan 350.1.13.10 ity [place].2.[place] [phone] [address] 2019-10-10 2019-10-10 [facility] 1.2.840.114 [id number] Univers 00:00:00 00:00:00 Secure Msg Tony Wan 350.1.13.10 ity of [place] 4.2.7.2.[place] [phone] [address] 2019-02-22 2019-02-22 Ky Jones [facility] 1.2.840.114 [id number] Univers 00:00:00 00:00:00 Asia Wan 350.1.13.10 i ty [facility] 4.2.7.2.[place] [phone] [address] Results Test Description Test Time Test Comments Results Result Comments Source SURGICAL 2022-01-16 16:55:00 Test Item Value Reference Range Interpretation Harika modi SURGICAL RUN (test DATE: 01/30/22 [facility] PAGE 1 RUN TIME: 1627 Specimen Inquiry RUN USER: INTERFACE code = PATIENT: LYNN HANEY ACCT #: [id number] LOC: [place] #: [id number] AGE/SX: 61/F ROOM: RE01/13/22REG DR: Alexy De León MD : 62 BED: DIS: STATUS: DEP REF TLOC: SPEC #: [id number] RECD: STATUS: [facility] #: [id number] ART: 01/13/22- 914 [facility] DR: Alexy De León MD ENTERED: 0 01/13/22-1448 SP TYPE: SURGICAL OTHR DR: ORDERED: ANATOMIC SPEC/3, SPEC TRACK, [id number]/3, [id number] PRO CEDURES: [id number] (01/14/22-1339) [id number] (01/15/22- 100) TISSUES: A. BREAST BIOPSY, FEMALE LEFT - LEFT BREAST 1:00 B. LYMPH NODE AXILLARY - LEFT AXILLARY LYMPH NODE C. LYMPH NODE AXILLARY - RIGHT AXILLARY LYMPH NODE CLINICAL COMMUNICATIONS Dr. Sellers discussed the [facility] 1343. FINAL DIAGNOSIS A. BREAST, LEFT, 1:00, ULTRASOU ND-GUIDED CORE BIOPSIES: - invasive ductal carcinoma, poorly differentiated, Grade 3 (Not tingham histologic score Tubule formation 3/3, Mitotic activity 3/3, Nuclear pleomorphism 2/3) - tumor measures at least 1.4 cm and is present on 3 of 3 cores - necrosis associated with invasive car cinoma - see Comment B. LYMPH NODE, LEFT AXILLARY, ULTRASOUND-GUIDED BIOPSY: - metastatic carcino ma present in 3 of 3 cores C. LYMPH NODE, RIGHT AXILLARY, ULTRASOUND-GUIDED BIOPSY: - metastatic carcinoma present in 5 of 5 cores Comment:The tumor cells form rows and trabeculae wit h occasional sheets and areas of necrosis,without microcalcifications. Mitotic figures number up to 36 in 10 high power archer. Immunohistochemistry performed on Block A1 shows diffuse strong Ecadher in(+) staining,supportive of the diagnosis. No in- situ tumor is identified. No lymphovascula r invasion isidentified in the breast core biopsies, but the presence of tumor in the lymph nodebiops ies is noted. Prognostic biomarker testing on block A1 is pending, results to be reported in an addendum. CONTINUED O N NEXT PAGE RUN DATE: 01/30/22 [facility] PAGE 2 RUN TIME: 1627 Specimen Inquiry RUN USER: INTERFACE SPEC #: [id number] PATIENT: LYNN CANTU #[id number] (Continued) --- GROSS DESCRIPTION A. Lab eled with the patient's name, designated "left breast 1:00", and received in formalinare thre e christie-white cores ranging from 1.7-1.9 cm in length. The specimen is entirelysubmitted in cassett e A1. Total Ischemic Time: 5 minutesTotal Formalin Fixation Time: 21 hours B. Labeled with the pa sun's name, designated "left axillary lymph node", and received informalin are three christie-whi te cores ranging from 1.2-1.7 cm in length. The specimen isentirely submitted in cassette B1. To lucila Ischemic Time: 5 minutesTotal Formalin Fixation Time: 21 hours C. Labeled with the patient's n carmelo, designated "right axillary lymph node", and received informalin are eight christie-white cores rangin g from 0.2-1.6 cm in length. The specimen isentirely submitted in cassette C1. Total Ischemic Time: 5 minutesTotal Formalin Fixation Time: 21 hours HRR Technical component performed at [facility] ,[id number] , [place] [address] Unless gross only, the diagnosis is based upon micr oscopic examination.Immunohistochemistry: This test was developed and its performance characterist icsdetermined by this laboratory. It has not been approved nor does it need approval by [place] FDA. Appropriate positive and negative controls are reviewed and judged to beacceptable. This laborator y is certified under the Clinical Laboratory ImprovementAmendments (CLIA-88) as qualified to [facility] high complexity clinical laboratory testing. PREDICTIVE MARKERS Addendum #1 Entered: [phone] [facility] BREAST BIOMARKER REPORTINGProtocol Posting Da te: August 2021 CASE SUMMARY: (Breast Biomarker Reporting Template) TEST(S) PERFORMED Estrogen R eceptor (ER) Status: Negative (less than 1%), Internal control cells present andstain as expected Progesterone Receptor (PgR) Status: Negative (less than 1%), Internal control cellspresent and stain as expected CONTINUE D ON NEXT PAGE RUN DATE: 01/30/22 [facility] PAGE 3 RUN TIME: 1626 Specimen Inquiry RUN USER: INTERFACE SPEC #: [id number] PATIENT: LYNN CANTU #[id number] (Continued) --- PREDICTIVE MARKERS (Cont inued) HER2 by Immunohistochemistry: Negative (Score 0) Ki-67 by Immunohistochemistry: High p roliferation, 80% Cold Ischemia and Fixation Times: Meet requirements specified in latest version of theASCO / CAP Guidelines +Cold Ischemia Time (minutes): 5 min+Fixation Time (hours): 2 1 hours+Testing Performed on Block Number(s): A1 METHODS +Fixative: Formalin PLEASE SEE ORIGINAL REFERENCE LAB REPORT FOR DETAILS Addendum Signed SIGNATURE ON FILE Jordon Sellers 01/30/22 1627 CLINICAL INFORMATION OSCAR ARGUETA D.O.S. 01/13/22, TIME OUT OF BODY 09:10 AM, TIME IN FORMALIN 09:15AM, TIME OUT OF FORMALIN AT 5:45 P.M., AYANA Hill TIME IN FORMALIN 8 HOURS 30 MINUTES Signed SIGNATURE ON Jordon Nunez 01/16/22 9967 END OF REPORT HEMOGLOBIN [id number] 04:00:00 Test Item Value Reference Interpretation Comments Range HEMOGLOBIN A1c-Q See_Comment H For someone without (test code = 4548-4) known d iabetes, a hemoglobin A1c value between 5.7% an d 6.4% is consist ent withprediabetes and should be confi rmed with a follow-u p test. For someo ne with known diab etes, a value <7%indicates that their diabetes is well controlled . Q1snbsygxc shou ld be individualized based on duration ofdiabetes, age , comorbid condit ions, and otherconsiderat ions. This assay resu lt is consistent with an increased risko f diabetes. Curre ntly, no consensus ex ists regarding use ofhemoglobin A1 c for diagnosis of diabetes for children. REPOR T COMMENT:FASTING :YES [Automated mess age] The system whic h generated this result transmit ina reference range : <5.7 % of total Hgb. The reference r angelica was not used to interpret this result as normal/abnormal . LEYDI (test code = PERFORMED BY LEYDI) [employer] [place]; [address] [place] [id number]; LEXIE HUFF MD Lab Interpretation Abnormal (test code = 50988-3) [facility] [id number] 03:00:00 Test Item Value Reference Range Interpretation Comments T-4, FREE-Q (test 1.7 ng/dL 0.8-1.8 code = 3024-7) LEYDI (test code = PERFORMED BY [employer] LEYDI) [employer] [place]; [address] [place] [id number]; LEXIE HUFF MD [facility], 3RD [id number] 03:00:00 Test Item Value Reference Range Interpretation Comments TSH, 3RD GENERATION-Q See_Comment L [Auto mated (test code = 3016-3) message ] The system which generated this result transmitted reference range : 0.40 - 4.50 mIU/L. The reference range was not used to interpret this result as normal/abnormal . LEYDI (test code = LEYDI) PERFORMED BY [employer] [facility]; [address] [place] [id number]; LEXIE HUFF MD Lab Interpretation Abnormal (test code = 89589-6) [facility] [id number] 03:00:00 Test Item Value Reference Range Interpretation Comments T3, FREE-Q (test 3.9 pg/mL 2.3-4.2 code = 3051-0) LEYDI (test code = PERFORMED BY [employer]) [employer] [facility]; [address] [place] [id number]; LEXIE HUFF MD [facility]
[2022-06-01] MEDS ORDERED: NA CHLORIDE 0.9% 500 ML ONE ×2 (18:42→22:57)
[2022-06-01] MEDS ORDERED: ONDANSETRON 4 MG/2 ML VIAL ONE (18:42)
[2022-06-01] MEDS ORDERED: MORPHINE 4 MG/ML SYR ONE (18:42)
[2022-06-01 19:09] LABS: Absolute Lymphocytes (CBC) 0.2 K/uL (0.7-4.9); Hematocrit 31.1 % (36.0-45.0); Lymphocytes % 4.7 % (15.3-44.8); MCV 101.8 fL (80-100); MPV 7.5 fL (7.6-11.3); Protime INR 1.02; RBC Red Blood Cell Count 3.05 M/uL (3.86-4.86)
[2022-06-01 19:27] LABS: Albumin 3.7 g/dL (3.4-5.0); Bilirubin Direct 0.3 mg/dL (0-0.2); Bilirubin Total 1.2 mg/dL (0.2-1.0); Magnesium 1.9 mg/dL (1.8-2.4); Potassium 4.2 mmol/L (3.5-5.1); Protein, Total 6.8 g/dL (6.4-8.2); Troponin High Sensitivity 23.5 pg/mL (<58.9)
[2022-06-01 19:35] LABS: Thyroid Stimulating Hormone 7.03 uIU/mL (0.360-3.740)
[2022-06-01] MEDS ORDERED: NA CHLORIDE 0.9% 1,000 ML ONE (19:41)
[2022-06-01 20:08] LABS: Blood Morphology Comment NOT SEEN (NOT SEEN); Platelet Estimate ADEQ
[2022-06-01] MEDS ORDERED: HYDROMORPHONE HCL 1 MG/ML INJ ONE ×2 (20:11→22:57)
--- NOTE | 2022-06-01 20:28 | RAD REPORT ---
EXAM DESCRIPTION: Javier Single View06/01/2022 7:34 pm CLINICAL HISTORY: cough COMPARISON: none FINDINGS: The lungs appear clear of acute infiltrate. The heart is normal size Central venous catheter with its tip in the SVC IMPRESSION: No acute abnormalities displayed
--- NOTE | 2022-06-01 20:28 | RAD REPORT ---
EXAM DESCRIPTION: CT - Angio Aorta For Dissection - 06/01/2022 7:52 pm CLINICAL HISTORY: . Chest and abd pain/back pain COMPARISON: 2020 TECHNIQUE: Computed tomography angiography of the chest, abdomen pelvis were obtained. 100 cc Isovue 370 was administered intravenously. Coronal and sagittal reconstruction were performed. MIP 3D reconstruction was performed All CT scans are performed using dose optimization technique as appropriate and may include automated exposure control or mA/KV adjustment according to patient size. FINDINGS: An aortic dissection is not seen. An aortic aneurysm is not displayed. The celiac, SMA and ROXI are patent . A lung consolidation is not present. A pericardial effusion is not seen. A pleural effusion is not no ina. Small hiatal hernia. Wall of the distal esophagus appears thickened. Most of the esophagus is dilated and fluid-filled. Fatty liver. Cholecystectomy Spleen, pancreas,,adrenals and kidneys demonstrate no significant abnormality. There no evidence diverticulitis. A ventral hernia repair. Small umbilical hernia. Wall of the sigmoid colon appears mildly thickened. Moderate compression fracture T12 vertebral body. Areas of sclerosis within the T12 vertebral body. R etropulsion of bone results in approximately 25% narrowing of the thecal sac Low-density within the left common femoral and left superficial femoral veins IMPRESSION: Negative for an aortic dissection. Moderate compression fracture T12 vertebral body appears subacute. Areas of sclerosis within the vert ebral body may indicate this is pathologic. MRI may helpful for further evaluation Mild thickening of the wall of the sigmoid colon may indicate a mild colitis or be secondary to incom plete distention Small hiatal hernia. Wall of the distal esophagus appears thickened. This may be secondary to mass or incomplete distention. Most of the esophagus is dilated and fluid-filled Low-density within the left common femoral and left superficial femoral veins may indicate thrombus o r be secondary to on opacified blood. Ultrasound is recommended
[2022-06-01 21:56] LABS: SARS-CoV-2 Antigen Rapid Res Negative (Negative)
--- NOTE | 2022-06-01 21:58 | RAD REPORT ---
EXAM DESCRIPTION: USExtremity Venous Uni Ltd06/01/2022 9:40 pm CLINICAL HISTORY: left leg pain COMPARISON: CT abdomen June 01, 2022 FINDINGS: Echogenic material is present within the left proximal superficial femoral vein. The vein does not compress. Remainder the of the deep veins are compressible and phasic signal. Grayscale, color and spectral analysis performed on all vessels IMPRESSION: Acute thrombus left superficial femoral vein
[2022-06-01] MEDS ORDERED: CEFEPIME 1 GM/VIAL ONE (22:26)
[2022-06-01] MEDS ORDERED: ENOXAPARIN 80 MG/0.8 ML SQ ONE (22:26)
[2022-06-01] MEDS ORDERED: NA CHLORIDE 0.9% 100 ML ONE (22:26)
--- NOTE | 2022-06-01 22:58 | ER ---
Nurse's Notes [facility] Name: Leni Gonzales Age: 61 yrs Sex: Female : 1960 Arrival Date: 06/01/2022 Time: 17:57 Bed 2 Private MD: Diagnosis: Compression Fracture T12 vertrabal body, possibly pathologic, intractable back pain;Bandemia;Hyperglycemia, unspecified;Deep Vein Thrombosis, Left lower extremity Presentation: 06/01 18:00 Chief complaint: EMS states: the patient has breast cancer and had chemo on bm7 and since then she has been having severe lower back pain. Coronavirus screen: At this time, the client does not indicate any symptoms associated with coronavirus-19. Ebola Screen: No symptoms or risks identified at this time. Initial Sepsis Screen: Does the patient meet any 2 criteria? No. Patient's initial sepsis screen is negative. Does the patient have a suspected source of infection? No. Patient's initial sepsis screen is negative. Risk Assessment: Do you want to hurt yourself or someone else? Patient reports no desire to harm self or others. Onset of symptoms was June 01, 2022. 18:00 Method Of Arrival: EMS: [facility] bm7 18:00 Acuity: BILLY 3 bm7 18:00 Care prior to arrival: Medication(s) given: Normal saline infusion, 500 mL, Toradol bm7 [place] \T\ 0345. Triage Assessment: 18:02 General: Appears in no apparent distress. uncomfortable, well developed, Behavior is bm7 calm, cooperative, appropriate for age. Pain: Complains of pain in lumbar area, left low back and right low back Pain radiates to thoracic area and lumbar area Pain currently is 10 out of 10 on a pain scale. Quality of pain is described as aching, sharp, shooting. EENT: No deficits noted. No signs and/or symptoms were reported regarding the EENT system. Neuro: No deficits noted. Cardiovascular: No deficits noted. Cardiovascular: pt has a port to the left upper chest . Respiratory: No deficits noted. GI: No deficits noted. No signs and/or symptoms were reported involving the gastrointestinal system. : No deficits noted. No signs and/or symptoms were reported regarding the genitourinary system. Derm: No deficits noted. No signs and/or symptoms reported regarding the dermatologic system. Musculoskeletal: No deficits noted. No signs and/or symptoms reported regarding the musculoskeletal system. Historical: - Allergies: 18:02 No Known Allergies; bm7 - Home Meds: 18:02 Unable to obtain [Active]; bm7 - PMHx: 18:02 Breast Cancer; bm7 - Immunization history:: Adult Immunizations up to date. - Social history:: Smoking status: Patient/guardian denies using tobacco products. - Family history:: not pertinent. Screenin:04 Abuse screen: Denies threats or abuse. Nutritional screening: No deficits noted. bm7 Tuberculosis screening: No symptoms or risk factors identified. Fall Risk None identified. Assessment: 18:04 Reassessment: No changes from previously documented assessment. bm7 19:05 Reassessment: Patient and/or family updated on plan of care and expected duration. Pain bm7 level reassessed. Patient is alert, oriented x 3, equal unlabored respirations, skin warm/dry/pink. 20:11 Reassessment: Patient and/or family updated on plan of care and expected duration. Pain ll3 level reassessed. Patient is alert, oriented x 3, equal unlabored respirations, skin warm/dry/pink. Pt c/o back pain 08/04 Dr. Peguero notified, medicated as ordered. 21:00 Reassessment: No changes from previously documented assessment. Patient and/or family ll3 updated on plan of care and expected duration. Pain level reassessed. Patient is alert, oriented x 3, equal unlabored respirations, skin warm/dry/pink. 22:45 Reassessment: Pt c/o back pain 10, Dr. Peguero notified. ll3 23:48 Reassessment: No changes from previously documented assessment. Patient and/or family ll3 updated on plan of care and expected duration. Pain level reassessed. Patient is alert, oriented x 3, equal unlabored respirations, skin warm/dry/pink. Vital Signs: 18:00 BP 121 / 88; Pulse 104; Resp 20; Temp 98.0(TE); Pulse Ox 99% on R/A; Weight 76.66 kg bm7 (R); Height 5 ft. 4 in. (162.56 cm); Pain 10/10; 19:06 BP 119 / 76; Pulse 101; Resp 16; Pulse Ox 97% on R/A; Pain 5/10; bm7 20:14 BP 117 / 76; Pulse 96; Resp 14; Pulse Ox 96% on R/A; ll3 21:00 BP 118 / 80; Pulse 94; Resp 13; Pulse Ox 95% on R/A; ll3 22:45 BP 126 / 79; Pulse 93; Resp 18; Pulse Ox 95% on R/A; ll3 23:48 BP 129 / 80; Pulse 93; Resp 12; Pulse Ox 92% on R/A; ll3 18:00 Body Mass Index 29.01 (76.66 kg, 162.56 cm) bm7 ED Course: 17:57 Patient arrived in ED. em1 17:59 Keira Tenorio, RN is Primary Nurse. bm7 18:01 Triage completed. bm7 18:02 Arm band placed on right wrist. bm7 18:04 No apparent distress. Resting quietly. Awaiting ED provider evaluation. bm7 18:04 Patient has correct armband on for positive identification. Placed in gown. Bed in low bm7 position. Call light in reach. Side rails up X2. Adult w/ patient. Client placed on continuous cardiac and pulse oximetry monitoring. NIBP monitoring applied. security monitor on. Warm blanket given. 18:11 Vinay Brar MD is Attending Physician. rogelio 19:05 No apparent distress. Resting quietly. Awaiting lab results. bm7 19:05 Initial lab(s) drawn, by ky, sent to lab. First set of blood cultures drawn by ky, EKG bm7 done, by ED staff, reviewed by Vinay Brar MD. Inserted saline lock: 22 gauge in right wrist, using aseptic technique. Blood collected. 19:06 Attending Physician role handed off by Vinay Brar MD 7 19:06 Crispin Peguero MD is Attending Physician. mh7 19:35 XRAY Chest (1 view) In Process Unspecified. EDMS 19:54 CT Aorta for Dissection In Process Unspecified. EDMS 20:08 Notified ED physician of a critical lab result(s). Band count of 18% Dr Peguero notified.bb 21:21 Initiated a transfer with Karlee from [facility]. mw2 21:42 US Extremity Venous Unilateral Ltd In Process Unspecified. EDMS 22:[address] Peguero with the Doctor from [facility]. [facility] 22:50 administrative approval given by Karlee Laws/ patient has been accepted to [address] to the [facility] bed 1734/ Dr. Wilkins accepted the patient in transfer/report to be called to [phone]. 23:48 No provider procedures requiring assistance completed. Patient transferred, IV remains ll3 in place. Administered Medications: 19:03 Drug: NS 0.9% 500 ml Route: IV; Rate: bolus; Site: right wrist; bm7 20:14 Follow up: Response: No adverse reaction; IV Status: Completed infusion; IV Intake: ll3 500ml 19:03 Drug: morphine 4 mg Route: IVP; Infused Over: 4 mins; Site: right wrist; bm7 20:13 Follow up: Response: No adverse reaction ll3 19:03 Drug: Zofran (Ondansetron) 4 mg Route: IVP; Site: right wrist; bm7 20:13 Follow up: Response: No adverse reaction ll3 20:10 Drug: Dilaudid (HYDROmorphone) 1 mg Route: IVP; Site: right wrist; ll3 22:27 Follow up: Response: No adverse reaction; Marked relief of symptoms; Pain is decreased ll3 20:13 Drug: NS 0.9% 1000 ml Route: IV; Rate: 125 ml/hr; Site: right wrist; ll3 22:27 Drug: Cefepime 1 grams Route: IVPB; Rate: 200 ml/hr; Infused Over: 30 mins; Site: right ll3 hand; 23:50 Follow up: Response: No adverse reaction; IV Status: Completed infusion; IV Intake: ll3 100ml 22:27 Drug: Lovenox (enoxaparin) 1 mg/kg Route: Sub-Q; Site: abdomen; ll3 23:49 Follow up: Response: No adverse reaction ll3 23:00 Drug: NS 0.9% 500 ml Volume: 500 ml; Route: IV; Rate: 1 bolus; Site: right wrist; ll3 23:49 Follow up: Response: No adverse reaction; IV Status: Completed infusion; IV Intake: ll3 500ml 23:01 Drug: Dilaudid (HYDROmorphone) 1 mg Route: IVP; Site: right hand; ll3 23:49 Follow up: Response: No adverse reaction; Marked relief of symptoms; Pain is decreased ll3 Medication: 18:04 VIS not applicable for this client. bm7 Intake: 20:14 IV: 500ml; Total: 500ml. ll3 23:49 IV: 500ml; Total: 1000ml. ll3 23:50 IV: 100ml; Total: 1100ml. ll3 Outcome: 22:58 ER care complete, transfer ordered by . [email or web address] 23:48 Transferred by ground EMS to [facility], Transfer form completed. X-rays ll3 sent w/ patient. 23:48 Condition: stable 23:48 Discharge instructions given to patient, EMS, Instructed on the need for transfer, Demonstrated understanding of instructions. 23:50 Patient left the ED. ll3 Signatures: Dispatcher [employer] EDMS Vinay Brar MD MD cha Ballard, Brenda, RN RN Dakotah Ryan em1 Theresa Moya mw2 Cripsin Peguero MD MD mh7 McCarthy, Brittany RN RN 7 Devon Durán RN RN ll3
--- NOTE | 2022-06-01 22:59 | EDPHYS ---
Physician Documentation [facility] Name: Leni Gonzales Age: 61 yrs Sex: Female : 1960 Arrival Date: 06/01/2022 Time: 17:57 Bed 2 Private MD: ED Physician Crispin Peguero HPI: 06/01 18:24 This 61 yrs old Female presents to ER via EMS with complaints of back pain, rogelio abd pain, chest pain. 18:24 The patient or guardian reports chest pain that is located primarily in the epigastric rogelio area, anterior chest wall, bilaterally. Onset: today. The patient complains of pain in the left low back, left mid back, right mid back and right low back. The pain radiates to the left low back, left mid back, right mid back and right low back. Onset: The symptoms/episode began/occurred. Modifying factors: The symptoms are alleviated by nothing. the symptoms are aggravated by nothing. The patient presents with pain that is acute, with no known mechanism of injury. The symptoms are located in the low back, thoracic area and lumbar area. Onset: The symptoms/episode began/occurred today. Historical: - Allergies: 18:02 No Known Allergies; bm7 - Home Meds: 18:02 Unable to obtain [Active]; bm7 - PMHx: 18:02 Breast Cancer; bm7 - Immunization history:: Adult Immunizations up to date. - Social history:: Smoking status: Patient/guardian denies using tobacco products. - Family history:: not pertinent. ROS: 18:24 Constitutional: Negative for fever, chills, and weight loss, Eyes: Negative for injury, rogelio pain, redness, and discharge, ENT: Negative for injury, pain, and discharge, Neck: Negative for injury, pain, and swelling, Cardiovascular: Negative for chest pain, palpitations, and edema, Respiratory: Negative for shortness of breath, cough, wheezing, and pleuritic chest pain, : Negative for injury, bleeding, discharge, and swelling, MS/Extremity: Negative for injury and deformity, Skin: Negative for injury, rash, and discoloration, Neuro: Negative for headache, weakness, numbness, tingling, and seizure, Psych: Negative for depression, anxiety, suicide ideation, homicidal ideation, and hallucinations, Allergy/Immunology: Negative for hives, rash, and allergies, Endocrine: Negative for neck swelling, polydipsia, polyuria, polyphagia, and marked weight changes, Hematologic/Lymphatic: Negative for swollen nodes, abnormal bleeding, and unusual bruising. 18:24 Abdomen/GI: Positive for abdominal pain, of the posterior aspect of right lateral abdomen, posterior aspect of left lateral abdomen, right upper quadrant, left upper quadrant, right lower quadrant and left lower quadrant. 18:24 Skin: Positive for pallor. Exam: 18:26 Constitutional: This is a well developed, well nourished patient who is awake, alert, rogelio and in no acute distress. Head/Face: Normocephalic, atraumatic. Eyes: Pupils equal round and reactive to light, extra-ocular motions intact. Lids and lashes normal. Conjunctiva and sclera are non-icteric and not injected. Cornea within normal limits. Periorbital areas with no swelling, redness, or edema. ENT: Nares patent. No nasal discharge, no septal abnormalities noted. Tympanic membranes are normal and external auditory canals are clear. Oropharynx with no redness, swelling, or masses, exudates, or evidence of obstruction, uvula midline. Mucous membranes moist. Neck: Trachea midline, no thyromegaly or masses palpated, and no cervical lymphadenopathy. Supple, full range of motion without nuchal rigidity, or vertebral point tenderness. No Meningismus. Chest/axilla: Normal chest wall appearance and motion. Nontender with no deformity. No lesions are appreciated. Cardiovascular: Regular rate and rhythm with a normal S1 and S2. No gallops, murmurs, or rubs. Normal PMI, no JVD. No pulse deficits. Respiratory: Lungs have equal breath sounds bilaterally, clear to auscultation and percussion. No rales, rhonchi or wheezes noted. No increased work of breathing, no retractions or nasal flaring. Female : Normal external genitalia. MS/ Extremity: Pulses equal, no cyanosis. Neurovascular intact. Full, normal range of motion. Neuro: Awake and alert, GCS 15, oriented to person, place, time, and situation. Cranial nerves II-XII grossly intact. Motor strength 5/5 in all extremities. Sensory grossly intact. Cerebellar exam normal. Normal gait. Psych: Awake, alert, with orientation to person, place and time. Behavior, mood, and affect are within normal limits. 18:26 Abdomen/GI: Inspection: abdomen appears normal, obese Bowel sounds: normal, in all quadrants, Liver: no appreciated palpable abnormalities, Hernia: not appreciated. 18:44 ECG was reviewed by the Attending Physician. [facility] Vital Signs: 18:00 BP 121 / 88; Pulse 104; Resp 20; Temp 98.0(TE); Pulse Ox 99% on R/A; Weight 76.66 kg bm7 (R); Height 5 ft. 4 in. (162.56 cm); Pain 10/10; 19:06 BP 119 / 76; Pulse 101; Resp 16; Pulse Ox 97% on R/A; Pain 5/10; bm7 20:14 BP 117 / 76; Pulse 96; Resp 14; Pulse Ox 96% on R/A; ll3 21:00 BP 118 / 80; Pulse 94; Resp 13; Pulse Ox 95% on R/A; ll3 22:45 BP 126 / 79; Pulse 93; Resp 18; Pulse Ox 95% on R/A; ll3 23:48 BP 129 / 80; Pulse 93; Resp 12; Pulse Ox 92% on R/A; ll3 18:00 Body Mass Index 29.01 (76.66 kg, 162.56 cm) bm7 MDM: 18:11 Patient medically screened. [facility] 18:27 Differential diagnosis: abnormal EKG, acute myocardial infarction, acute pericarditis, rogelio anxiety, Cholelithiasis nephrolithiasis, pyelonephritis, UTI, gastritis, pancreatitis, peptic ulcer disease, pneumonia, thoracic aortic disection, unstable angina. HEART Score: History: Slightly Suspicious (0), ECG: Normal (0), Age: > 45 and < 65 years (1), Risk Factors: 1 or 2 risk factors (1), [Hypercholesterolemia] [Obesity] Troponin: < or = 1 x Normal Limit (0). The patient's deep vein thrombosis risk score was calculated as follows:. Data reviewed: vital signs, nurses notes, lab test result(s), EKG, radiologic studies, CT scan, plain films. Data interpreted: shelter monitor: rate is 104 beats/min, rhythm is regular, Pulse oximetry: on room air is 99 %. Test interpretation: by ED physician or midlevel provider: ECG, plain radiologic studies. 18:30 ED course: Dr PEGUERO TO ASSUME CARE, PT DESIRES TO GO TO [facility], DR TABATHA ANDERSEN. [facility] 22:53 Counseling: I had a detailed discussion with the patient and/or guardian regarding: the [facility] historical points, exam findings, and any diagnostic results supporting the discharge/admit diagnosis, lab results, radiology results, the need for further work-up and treatment in the hospital. Response to treatment: the patient's symptoms have mildly improved after treatment. ED course: Patient and family requested transfer to [facility]. She receives all her care there.. 06/01 18:22 Order name: Basic Metabolic Panel; Complete Time: 20:05 [facility] 06/01 18:22 Order name: CBC with Diff; Complete Time: 20:33 [facility] 06/01 18:22 Order name: LFT's; Complete Time: 20:05 [facility] 06/01 18:22 Order name: Magnesium; Complete Time: 20:05 [facility] 06/01 18:22 Order name: NT PRO-BNP; Complete Time: 20:05 [facility] 06/01 18:22 Order name: PT-INR; Complete Time: 20:05 [facility] 06/01 18:22 Order name: Troponin HS; Complete Time: 20:05 [facility] 06/01 18:22 Order name: Lipase; Complete Time: 20:05 [facility] 06/01 18:22 Order name: TSH; Complete Time: 20:05 [facility] 06/01 18:23 Order name: Blood Culture Adult (2) [facility] 06/01 18:23 Order name: Lactate; Complete Time: 20:05 [facility] 06/01 19:20 Order name: Manual Differential; Complete Time: 20:33 EDMS 06/01 19:38 Order name: T4 Free; Complete Time: 20:05 EDMS 06/01 18:22 Order name: XRAY Chest (1 view); Complete Time: 20:33 [facility] 06/01 18:22 Order name: EKG; Complete Time: 18:25 [facility] 06/01 18:22 Order name: CT Aorta for Dissection; Complete Time: 20:33 [facility] 06/01 20:39 Order name: US Extremity Venous Unilateral Ltd; Complete Time: 22:06 7 06/01 21:29 Order name: SARS RAPID; Complete Time: 22:06 mw2 06/01 18:22 Order name: Cardiac monitoring; Complete Time: 19:04 [facility] 06/01 18:22 Order name: EKG - Nurse/Tech; Complete Time: 19: [facility] 06/01 18:22 Order name: IV Saline Lock; Complete Time: : [facility] 06/01 18:22 Order name: Labs collected and sent; Complete Time: : [facility] 06/01 18:22 Order name: O2 Per Protocol; Complete Time: : [facility] 06/01 18:22 Order name: O2 Sat Monitoring; Complete Time: : [facility] EC:44 Rate is 97 beats/min. Rhythm is regular. QRS [place] is Normal. CA interval is normal. QRS rogelio interval is normal. QT interval is normal. No Q waves. T waves are Normal. No ST changes noted. Clinical impression: Normal ECG and No evidence of ischemia. Interpreted by me. Reviewed by me. Administered Medications: 19:03 Drug: NS 0.9% 500 ml Route: IV; Rate: bolus; Site: right wrist; bm7 20:14 Follow up: Response: No adverse reaction; IV Status: Completed infusion; IV Intake: ll3 500ml 19:03 Drug: morphine 4 mg Route: IVP; Infused Over: 4 mins; Site: right wrist; bm7 20:13 Follow up: Response: No adverse reaction ll3 19:03 Drug: Zofran (Ondansetron) 4 mg Route: IVP; Site: right wrist; bm7 20:13 Follow up: Response: No adverse reaction ll3 20:10 Drug: Dilaudid (HYDROmorphone) 1 mg Route: IVP; Site: right wrist; ll3 22:27 Follow up: Response: No adverse reaction; Marked relief of symptoms; Pain is decreased ll3 20:13 Drug: NS 0.9% 1000 ml Route: IV; Rate: 125 ml/hr; Site: right wrist; ll3 22:27 Drug: Cefepime 1 grams Route: IVPB; Rate: 200 ml/hr; Infused Over: 30 mins; Site: right ll3 hand; 23:50 Follow up: Response: No adverse reaction; IV Status: Completed infusion; IV Intake: ll3 100ml 22:27 Drug: Lovenox (enoxaparin) 1 mg/kg Route: Sub-Q; Site: abdomen; ll3 23:49 Follow up: Response: No adverse reaction ll3 23:00 Drug: NS 0.9% 500 ml Volume: 500 ml; Route: IV; Rate: 1 bolus; Site: right wrist; ll3 23:49 Follow up: Response: No adverse reaction; IV Status: Completed infusion; IV Intake: ll3 500ml 23:01 Drug: Dilaudid (HYDROmorphone) 1 mg Route: IVP; Site: right hand; ll3 23:49 Follow up: Response: No adverse reaction; Marked relief of symptoms; Pain is decreased ll3 Disposition Summary: 06/01/22 22:58 Transfer Ordered Transfer Location: [facility] Reason: Patient request [facility] Condition: Stable [facility] Problem: [facility] Symptoms: have improved 7 Accepting Physician: Dr. Wilkins(06/01/22 23:50) ll3 Diagnosis - Compression Fracture T12 vertrabal body, possibly pathologic, intractable back pain 7 - Bandemia 7 - Hyperglycemia, unspecified 7 - Deep Vein Thrombosis, Left lower extremity [facility] Forms: - Medication Reconciliation Form 7 - SBAR form 7 Signatures: Dispatcher [employer] EDMS Vinay Brar MD MD cha Holmes, Maurice, MD MD 7 Keira Tenorio, RN RN 7 Devon Durán, TARA RN ll3 Corrections: (The following items were deleted from the chart) 21:32 20:19 SARS-COV-2 RT PCR+MOL.LAB.BRZ ordered. EDMS EDMS 21:44 21:34 Group A Streptococcus Rapid Sc+BA.LAB.BRZ ordered. EDMS EDMS 23:15 22:58 Dr. sow [facility] 23:50 23:15 Dr. Wilkins [facility]
[2022-06-01 23:55] VITALS: TEMP 98
[2022-06-02 00:41] VITALS: BP 118/80; O2SAT 95
--- NOTE | 2022-06-02 13:45 | EKG ---
Test Date: 2022-06-01 Test Time: 18:38:29 Oncology Registrar: HB MEASUREMENT RESULTS: Intervals: Rate: 97 GA: 150 QRSD: 80 QT: 366 QTc: 464 [place]: P: 66 GA: 150 QRS: 56 T: 69 INTERPRETIVE STATEMENTS: Normal sinus rhythm Normal ECG No previous ECG available for comparison Electronically Signed On 06-02-22 13:43:29 CDT by Barrie Rees
== END 2022-06-01 23:50 | disposition short-term general hospital (02) ==
LOC: ER 17:52
DX: S22.080A Wedge compression fracture of T11-T12 vertebra, initial encounter for closed fracture (principal); I82.402 Acute embolism and thrombosis of unspecified deep veins of left lower extremity; R73.9 Hyperglycemia, unspecified; D72.825 Bandemia; R07.89 Other chest pain; Z20.822 Contact with and (suspected) exposure to COVID-19; Z85.3 Personal history of malignant neoplasm of breast
CPT/HCPCS: 93005; 87040 ×2; 85025; 80048; 36415; 83735; 85610; 80076; 83605; 84443; 84484; 84439; 83690; 83880; 71275; 74175; 71045; 93971; 96372; 99285; 87811; Q9967; J1170 ×2; J7040 ×2; J7030; J2405; J0692

== ENCOUNTER 2023-04-17 07:05 | Emergency (ER) | payer BC ==
--- OUTSIDE RECORDS SUMMARY | 2023-04-17 07:11 | XMS REPORT | Continuity of Care Document ---
:1960 Author Organization [facility] t Address [address] [place] [address] Care Team Providers Name Role Phone YVETTE DE LEÓN Primary Care Physician Unavailable Jen Montoya Attending Clinician Unavailable JENIFFER VERGARA Attending Clinician Unavailable MAXIMUS BARRAGAN Attending Clinician Unavailable TABATHA ANDERSEN Attending Clinician Unavailable SHAUNA BUCKLEY Attending Clinician Unavailable CYNTHIA CALDERON Attending Clinician Unavailable MARGARITA HOLMAN Attending Clinician Unavailable MD JULIETA AMADOR Attending Clinician Unavailable YFN CRUZ Attending Clinician Unavailable LUCINDA LAUGHLIN Attending Clinician Unavailable DANIELA JANE Attending Clinician Unavailable EMILIANO ADAMS Attending Clinician Unavailable YUMIKO ROBERT Attending Clinician Unavailable FOG_Fondren_Brac_LLP Attending Clinician Unavailable Luiz Conrad Attending Clinician Unavailable RADIOLOGY Attending Clinician Unavailable Radiology Attending Clinician Unavailable TONY VAZQUEZ Attending Clinician Unavailable Yvette De León V Attending Clinician Unavailable JUNIOR HAILE III Attending Clinician Unavailable Doctor Unassigned, [place] Attending Clinician Unavailable YVETTE DE LEÓN Attending Clinician Unavailable Tony Vazquez MD Attending Clinician Jakob Mead DO Attending Clinician Asia Jones MD Attending Clinician Unavailable Yvette De León V Admitting Clinician Unavailable MARGARITA HOLMAN Admitting Clinician Unavailable MD JULIETA AMADOR Admitting Clinician Unavailable MD SHAUNA BUCKLEY Admitting Clinician Unavailable JENIFFER VERGARA Admitting Clinician Unavailable SHERRI KUMAR Admitting Clinician Unavailable FOG_Fondren_Brac_LLP Admitting Clinician Unavailable TABATHA ANDERSEN Admitting Clinician Unavailable Payers Payer Name Policy Type Policy Number Effective Date Expiration Date Jon c[place] [id number] 2020 00:00:[address] [facility] [id number] 2020 00:00:00 [employer]ETNA CHOICE POS [id number] 2017 00:00:00 II Problems Condition Condition Condition Status Onset Resolution Last Treating Co mments Source Name Details Category Date Date Treatment Clinician Date Compressio Compressio Problem Active A zalea n fracture n Fracture 06-05 Or thope of lumbar of Lumbar 00:00: dic spine Spine 00 Sports Medicin e Primary Primary Disease Active 2016-10 Univers hypothyroi hypothyroi 11-16 it y of dism dism 00:00: [place] [facility] Dyslipidem Dyslipidem Disease Active 2016-10 U stiven ia ia 11-16 ity of 00:00: [place] [facility] Primary Primary Disease Active 2016-10 Univers hypothyroi hypothyroi 11-16 it y of dism dism 00:00: Medical Branch Prediabete Prediabete Disease Active U nivers s s 04-30 ity of 00:00: 00 Medical Branch Hypothyroi Hypothyroi Disease Active Overview : Univers dism dism 01-29 Formattin ity of 00:00: g of this note Medical might be Branch different from the original. ICD10 Diagnosis Term Professor Of Mathematics Utility Vitamin D Vitamin D Disease Active Uni vers deficiency deficiency 01-29 it y of 00:00: [place] [facility] Major Major Disease Active Univers depressive depressive 01-29 it y of disorder disorder 00:00: Medical Branch Impaired Impaired Disease Active Unive rs fasting fasting 01-29 ity of glucose glucose 00:00: 00 Medical Branch Low HDL Low HDL Disease Active Univers (under 40) (under 40) 01-29 it y of 00:00: Medical Branch Elevated Elevated Disease Active Unive rs glucose glucose 4-06 ity of 00:00: [place] 00 Medical Branch Allergies, Adverse Reactions, Alerts Allergy Allergy Status Severity Reaction(s) Onset Inactive Treating Comm ents Source Name Type Date Date Clinician LORATADI DRUG Active Palpitations Un zach NE INGREDI 3- ity of 00:00: [place] 00 Medical Branch Loratadi Propensi Active Palpitations Univers ne ty to 3 ity of adverse 00:00: [place] reaction 00 Medical s Branch Hydrocod Propensi Active Palpitations Univers one-Acet ty to 4 ity of aminophe adverse 00:00: [place] n reaction 00 Medical s Branch HYDROCOD DRUG Active ITCHING Univers ONE-ACET 4-06 ity of AMINOPHE 00:00: [place] N 00 Medical Branch Social History Social Habit Start Date Stop Date Quantity Comments Source Exposure to 2022-02-16 2022-02-[address] [facility] SARS-CoV-2 (event) 00:00:00 15:56:00 [facility] Tobacco use and 2020-08-07 2020-08-07 Never used [facility] exposure 00:00:00 00:00:00 [facility] Sex Ass[birth year] At [birth year] [facility] 00:00:00 00:00:00 [facility] Smoking Status Start Date Stop Date Source Current every day smoker 2020-08-07 00:00:00 Uni versity [facility] Medications Ordered Filled Start Stop Current Ordering Indication Dosage Frequency Signature Comments Components Source Medication Medication Date Date Medication? Clinician (SIG) Name Name gadobenate 2021- No [id number] .2mL/kg 0.2 mL/kg, [facility] dimeglumine 03-04 Intravenou i ty of (MULTIHANCE 22:00: 21:58 s, ONCE, 1 [place] -15 mL) 00 :00 dose, On Medical injection e Branch 0.2 mL/kg 03/04/22 at 1700, Routine naproxen Yes [id number] 500mg Take 1 Un zach (NAPROSYN) - tablet by ity of 500 mg 00:00: mouth 2 [place] tablet 00 (two) Medical times Branch daily. methocarbam Yes [id number] 500mg Take 1 Univers oL 500 mg 3-01 tablet by ity o f tablet 00:00: mouth 2 (two) Medical times [place] daily. krill-om3-d Yes Take by Uni vers ernst-epa-om6- 4-14 mouth. ity of lip-astx 19:22: [place] (KRILL OIL, 21 Medical OMEGA 3 AND Branch 6,) 1,500-165-6 7.5 mg Cap krill-om3-d Yes Take by Uni vers ernst-epa-om6- 4-14 mouth. ity of lip-astx 19:22: [place] (KRILL OIL, 21 Medical OMEGA 3 AND [...] 6,) 1,500-165-6 7.5 mg Cap levothyroxi Yes [id number] Take one Univers ne 150 mcg 4-14 tablet in ity of tablet 00:00: morning on Thursday [facility] [place] Thursday levothyroxi Yes [id number] Take one Univers ne 150 mcg 4-14 tablet in ity of tablet 00:00: morning on Thursday [facility] [place] Thursday levothyroxi Yes [id number] Take one Univers ne 150 mcg 4-14 tablet in ity of tablet 00:00: morning on Thursday [facility] Thursday levothyroxi Yes [id number] Take one Univers ne 150 mcg 4-14 tablet in ity of tablet 00:00: morning on Thursday [facility] Thursday levothyroxi Yes [id number] Take one Univers ne 150 mcg 4-07 tablet in ity of tablet 00:00: morning on Thuday [facility] Thursday levothyroxi Yes [id number] Take one Univers ne 150 mcg 4-07 tablet in ity of tablet 00:00: morning on [place] Thursday [facility] Thursday levothyroxi Yes [id number] Take one Univers ne 150 mcg 4-07 tablet in ity of tablet 00:00: morning on [place] Thursday [facility] Thursday levothyroxi Yes [id number] Take one Univers ne 150 mcg 4-07 tablet in ity of tablet 00:00: morning on [place] Thursday [facility] Thursday levothyroxi 2020- No [id number] Take one Univers ne 150 mcg 4-07 04-14 tablet in ity of tablet 00:00: 00:00 morning on [facility] 00 :Thursday [facility] Thursday levothyroxi 2020- No [id number] Take one Univers ne 150 mcg 4-07 04-14 tablet in ity of tablet 00:00: 00:00 morning on [facility] 00 :Thursday [facility] Thursday levothyroxi 2019-10 Yes [id number] Take one Univers ne 150 mcg 0-13 tablet in ity of tablet 00:00: morning on [place] Thursday [facility] Thursday levothyroxi 2019-10 Yes [id number] Take one Univers ne 150 mcg 0-13 tablet in ity of tablet 00:00: morning on [place] Thursday [facility] Thursday levothyroxi 2019-10 Yes [id number] Take one Univers ne 150 mcg 0-13 tablet in ity of tablet 00:00: morning on [place] Thursday [facility] Thursday levothyroxi 2019-10- No [id number] Take one Univers ne 150 mcg 0-13 04-07 tablet in ity of tablet 00:00: 00:00 morning on [facility] 00 :Thursday [facility] Thursday levothyroxi Yes [id number] Take one Univers ne 150 mcg 5-12 tablet in ity of tablet 00:00: morning on [place] Thursday [facility] Thursday levothyroxi Yes [id number] Take one Univers ne 150 mcg 5-12 tablet in ity of tablet 00:00: morning on Thursday Medical thru Branch Thursday levothyroxi 2020- No [id number] Take one Univers ne 150 mcg 5-12 10-13 tablet in ity of tablet 00:00: 00:00 morning on 00 :00 Thursday Medical thru Branch Thursday levothyroxi 2020- No [id number] Take one Univers ne 150 mcg 5-12 10-13 tablet in ity of tablet 00:00: 00:00 morning on 00 :00 Thursday Medical thru Branch Thursday levothyroxi 2018-10 Yes [id number] 150ug Take 1 Univers ne 150 mcg 1-12 tablet by ity of tablet 00:00: mouth [place] 00 every Medical morning. Branch levothyroxi 2018-10 2020- No [id number] 150ug Take 1 Univers ne 150 mcg 1-12 05-12 tablet by ity of tablet 00:00: 00:00 mouth [place] 00 :00 every Medical morning. Branch ERGOCALCIFE Yes 1000U Take 1,000 Univers ROL, 5-07 Units by ity of VITAMIN D2, 16:45: mouth [place] (VITAMIN D 06 daily. Medical ORAL) Branch ESOMEPRAZOL Yes Take by Uni vers E MAGNESIUM 5-07 mouth. ity of (NEXIUM 16:45: [place] 24HR ORAL) 06 Medical Branch krill-om3-d Yes Take by Uni vers ernst-epa-om6- 5-07 mouth. ity of lip-astx 16:45: [place] (KRILL OIL, Medical OMEGA 3 AND Branch 6,) 1,500-165-6 7.5 mg Cap vitamin 2019- Yes 1000ug Take 1,000 Un zach B-12 5-07 mcg by ity of (VITAMIN 16:45: mouth [place] B-12) 1,000 06 daily. Medica l mcg tablet Branch aspirin 81 2018- Yes 81mg Take 81 mg U nivers mg tablet 5-07 by mouth ity of 16:45: daily. 06 Medical Branch DULoxetine Yes 60mg Take [...] Branch 6,) 1,500-165-6 7.5 mg Cap vitamin 0 Yes 1000ug Take 1,000 Un zach B-12 [...] Medical ORAL) Branch ESOMEPRAZOL Yes Take by Un zach E MAGNESIUM 5-07 mouth. ity of (NEXIUM 16:45: [place] 24HR ORAL) 06 Medical Branch krill-om3-d 0 Yes Take by Uni vers ernst-epa-om6- 5-07 [...] [place] 24HR ORAL) 06 Medical Branch vitamin 0 Yes 1000ug Take 1,000 Un zach B-12 5-07 mcg by ity of (VITAMIN 16:45: mouth [place] B-12) 1,000 06 daily. Medica l mcg tablet Branch aspirin 81 Yes 81mg Take 81 mg U nivers mg tablet 5-07 by mouth ity of 16:45: daily. [place] 06 Medical Branch DULoxetine Yes 60mg Take [...] 5-07 by mouth ity of 16:45: daily. [place] [id number] Medical Branch DULoxetine Yes 60mg Take 60 [...] Branch 6,) 1,500-165-6 7.5 mg Cap vitamin 20190 Yes 1000ug Take 1,000 Un zach B-12 [...] 16:45: daily. [place] 06 Medical Branch DULoxetine 2018- Yes 60mg Take 60 mg U nivers (CYMBALTA) 5-07 by mouth 2 ity of 60 mg 16:45: (two) [place] capsule 06 times Medical daily. Branch buPROPion Yes 150mg Take 150 Uni vers XL 5-07 mg by ity of (WELLBUTRIN 16:45: mouth [place] XL) 150 mg 06 daily. Medical 24 hr Branch tablet clonazePAM 2018- Yes .5mg Take 0.5 Uni vers (KLONOPIN) [...] [place] 24HR ORAL) 06 Medical Branch krill-om3-d 0 Yes Take by Uni vers ernst-epa-om6- 5-07 [...] 16:45: daily. [place] 06 Medical Branch DULoxetine 0 Yes 60mg Take 60 mg U nivers [...] 5-07 by mouth ity of 16:45: daily. [facility] DULoxetine Yes 60mg Take 60 mg [...] 5-07 by mouth ity of 11:45: daily. [facility] DULoxetine Yes 60mg Take 60 mg [...] (NEXIUM 11:45: [place] 24HR ORAL) 06 Medical [place] vitamin 2019-0 Yes 1000ug Take 1,000 Un zach B-12 5-07 mcg by ity of (VITAMIN 11:45: mouth [place] B-12) 1,000 06 daily. Medica l mcg tablet [place] folic acid 2016-10 Yes Take by Univ ers 0.8 mg Cap 1-22 mouth. ity of 15:41: [address] folic acid 2016-10 Yes Take by Univ ers 0.8 mg Cap 1-22 mouth. ity of 15:41: [address] folic acid 2016-10 Yes Take by Univ ers 0.8 mg Cap 1-22 mouth. ity of 15:41: [address] folic acid 2016-10 Yes Take by Univ ers 0.8 mg Cap 1-22 mouth. ity of 15:41: [address] folic acid 2016-10 Yes Take by Univ ers 0.8 mg Cap 1-22 mouth. ity of 15:41: [address] folic acid 2016-10 Yes Take by Univ ers 0.8 mg Cap 1-22 mouth. ity of 15:41: [address] folic acid 2016-10 Yes Take by Univ ers 0.8 mg Cap 1-22 mouth. ity of 15:41: [address] folic acid 2016-10 Yes Take by Univ ers 0.8 mg Cap 1-22 mouth. ity of 15:41: [address] folic acid 2016-10 Yes Take by Univ ers 0.8 mg Cap 1-22 mouth. ity of 15:41: [address] folic acid 2016-10 Yes Take by Univ ers 0.8 mg Cap 1-22 mouth. ity of 15:41: [address] folic acid 2016-10 Yes Take by Univ ers 0.8 mg Cap 1-22 mouth. ity of 15:41: [address] folic acid 2016-10 Yes Take by Univ ers 0.8 mg Cap 1-22 mouth. ity of 15:41: [address] folic acid 2016-10 Yes Take by Univ ers 0.8 mg Cap 1-22 mouth. ity of 15:41: [address] folic acid 2016-10 Yes Take by Univ ers 0.8 mg Cap 1-22 mouth. ity of 09:41: [place] 48 Medical Branch folic acid 2016-10 Yes Take by Univ ers 0.8 mg Cap 1-22 mouth. ity of 09:41: [place] [address] Medical Branch blood sugar Yes daily. Use Univers [...] directed Jaden as ULTRA TEST) 00 [facility] blood sugar 2014-0 Yes daily. Use Univers diagnostic 7-07 as ity of (ONE TOUCH 00:00: directed Jaden as ULTRA TEST) 00 [facility] Immunizations Ordered Filled Immunization Date Status Comments [facility] e Immunization Name Name SARS-COV-2 COVID-19 2021-02-01 Completed Unive rsity of PFIZER VACCINE 00:00:00 [facility] SARS-COV-2 COVID-19 2021-02-01 Completed Unive rsity of PFIZER VACCINE 00:00:00 [facility] SARS-COV-2 COVID-19 2021-01-09 Completed Unive rsity of PFIZER VACCINE 00:00:00 [facility] SARS-COV-2 COVID-19 2021-01-09 Completed Unive rsity of PFIZER VACCINE 00:00:00 [facility] Vital Signs Vital Name Observation Time Observation Value Comments Source Systolic blood 2021-02-06 19:20:00 121 mm[Hg] Univer sity [facility] Diastolic blood 2021-02-06 19:20:00 83 mm[Hg] Unive rsity of [facility] Heart rate 2021-02-06 19:20:00 81 /min [facility] Body height 2021-02-06 19:20:00 162.6 cm [facility] Body weight 2021-02-06 19:20:00 73.12 kg [facility] BMI 2021-02-06 19:20:00 27.67 kg/m2 [facility] Oxygen saturation 2021-02-06 19:20:00 96 /min [facility] in Arterial blood [facility] anch by Pulse oximetry Systolic blood 2020-08-07 15:00:00 137 mm[Hg] Univer sity [facility] Diastolic blood 2020-08-07 15:00:00 85 mm[Hg] [facility] 2020-08-07 15:00:00 77 /min [facility] Body height 2020-08-07 15:00:00 162.6 cm [facility] Body weight 2020-08-07 15:00:00 71.668 kg [facility] BMI 2020-08-07 15:00:00 27.12 kg/m2 [facility] Body weight 2020-03-06 16:08:00 70.761 kg [facility] BMI 2020-03-06 16:08:00 25.96 kg/m2 [facility] Procedures Procedure Date / Time Performed Performing Clinician [facility] e ASSIGNMENT OF BENEFITS 2021-12-24 15:54:06 Doctor Unassigned, No [facility] HEMOGLOBIN A1C-Q 2021-02-05 19:09:00 Dhruv [facility] T-4, FREE-Q 2020-08-02 17:55:00 Dhruv [facility] TSH, 3RD GENERATION-Q 2020-08-02 17:55:00 Dhruv [facility] T3, FREE-Q 2020-08-02 17:55:00 Dhruv [facility] Encounters Start End Encounter Admission Attending Care Care Encounter Source Date/Time Date/Time Type Type Clinicians Facility Department ID 2022-01-31 Inpatient VEDA Montoya, [facility] [id number] [facility] 08:00:00 Jen Arauz [facility] 2023-04-14 2023-04-14 Outpatient JAI, [facility] [id number] [place] 00:00:00 00:00:00 JENIFFER 380 Method i 2023-01-29 2023-03-11 Outpatient YUNG, [facility] [id number] [place] 00:00:00 00:00:00 MAXIMUS 553 [facility] i 2023-03-10 2023-03-10 Outpatient ANDERESN, [facility] [id number] [place] 00:00:00 00:00:00 TABATHA 232 Method i 2023-02-12 2023-02-12 Outpatient MARCIO, [facility] [id number] [place] 00:00:00 00:00:00 SHAUNA 790 Method i 2023-02-04 2023-02-04 Outpatient ANDERSEN, [facility] [id number] [place] 00:00:00 00:00:00 TABATHA 287 Method i 2023-02-04 2023-02-04 Outpatient [facility] [id number] [place] 00:00:00 00:00:[address] 2023-01-29 2023-01-29 Outpatient YUNG, [facility] [id number] [place] 00:00:00 00:00:00 MAXIMUS [address] 2022-12-29 2022-12-29 Outpatient MARCIO, [facility] [id number] [place] 00:00:00 00:00:00 SHAUNA [address] 2022-12-25 2022-12-25 Outpatient GANESH, [facility] [id number] [place] 00:00:00 00:00:00 TABATHA [address] 2022-12-24 2022-12-24 Outpatient YUMIKO, BIN [facility] [id number] [place] 00:00:00 00:00:[address] 2022-12-24 2022-12-24 Outpatient [facility] [id number] [place] 00:00:00 00:00:[address] 2022-12-24 2022-12-24 Outpatient YUMIKO, BIN [facility] [id number] [place] 00:00:00 00:00:[address] 2022-12-24 2022-12-24 Outpatient [facility] [id number] [place] 00:00:00 00:00:[address] 2022-12-23 2022-12-23 Outpatient [facility] [id number] [place] 00:00:00 00:00:[address] 2022-12-23 2022-12-23 Outpatient [facility] [id number] [place] 00:00:00 00:00:[address] 2022-12-22 2022-12-22 Outpatient [facility] [id number] [place] 00:00:00 00:00:[address] 2022-12-22 2022-12-22 Outpatient [facility] [id number] [place] 00:00:00 00:00:[address] 2022-12-19 2022-12-19 Outpatient [facility] [id number] [place] 00:00:00 00:00:[address] 2022-12-18 2022-12-18 Outpatient [facility] [id number] [place] 00:00:00 00:00:[address] 2022-12-17 2022-12-17 Outpatient YUMIKO, BIN [facility] [id number] [place] 00:00:00 00:00:[address] 2022-12-17 2022-12-17 Outpatient YUMIKO, BIN [facility] [id number] [place] 00:00:00 00:00:[address] 2022-12-16 2022-12-16 Outpatient [facility] [id number] [place] 00:00:00 00:00:[address] 2022-12-15 2022-12-15 Outpatient [facility] [id number] [place] 00:00:00 00:00:[address] 2022-12-11 2022-12-13 Inpatient MANDA, MARGARITA [facility] [id number] [place] 00:00:00 00:00:[address] 2022-12-11 2022-12-11 Outpatient HM [facility] [id number] [place] 00:00:00 00:00:[address] 2022-12-11 2022-12-11 Outpatient YUMIKO, BIN [facility] [id number] [place] 00:00:00 00:00:[address] 2022-12-11 2022-12-11 Outpatient YUMIKO, BIN [facility] [id number] [place] 00:00:00 00:00:[address] 2022-12-10 2022-12-10 Outpatient [facility] [id number] [place] 00:00:00 00:00:[address] 2022-12-10 2022-12-10 Outpatient YUMIKO, BIN [facility] [id number] [place] 00:00:00 00:00:[address] 2022-12-10 2022-12-10 Outpatient YUMIKO, BIN [facility] [id number] [place] 00:00:00 00:00:[address] 2022-12-09 2022-12-09 Outpatient FARACH, [facility] [id number] [place] 00:00:00 00:00:00 YFN [address] 2022-12-09 2022-12-09 Outpatient YUMIKO, BIN [facility] [id number] [place] 00:00:00 00:00:[address] 2022-12-04 2022-12-04 Outpatient [facility] [id number] [place] 00:00:00 00:00:[address] 2022-12-04 2022-12-04 Outpatient ANDERSEN, [facility] [id number] [place] 00:00:00 00:00:00 TABATHA [address] 2022-12-04 2022-12-04 Outpatient ANDERSEN, [facility] [id number] [place] 00:00:00 00:00:00 TABATHA [address] 2022-12-04 2022-12-04 Outpatient YUMIKO, BIN [facility] [id number] [place] 00:00:00 00:00:[address] 2022-12-03 2022-12-03 Outpatient [facility] [id number] [place] 00:00:00 00:00:[address] 2022-12-03 2022-12-03 Outpatient YUMIKO, BIN [facility] [id number] [place] 00:00:00 00:00:[address] 2022-12-03 2022-12-03 Outpatient YUMIKO, BIN [facility] [id number] [place] 00:00:00 00:00:[address] 2022-12-03 2022-12-03 Outpatient [facility] [id number] [place] 00:00:00 00:00:[address] 2022-12-02 2022-12-02 Outpatient [facility] [id number] [place] 00:00:00 00:00:[address] 2022-12-02 2022-12-02 Outpatient [facility] [id number] [place] 00:00:00 00:00:[address] 2022-12-02 2022-12-02 Outpatient [facility] [id number] [place] 00:00:00 00:00:[address] 2022-11-28 2022-11-28 Outpatient [facility] [id number] [place] 00:00:00 00:00:[address] 2022-11-28 2022-11-28 Outpatient YUMIKO, BIN [facility] [id number] [place] 00:00:00 00:00:[address] 2022-11-28 2022-11-28 Outpatient [facility] [id number] [place] 00:00:00 00:00:[address] 2022-11-27 2022-11-27 Outpatient [facility] [id number] [place] 00:00:00 00:00:[address] 2022-11-27 2022-11-27 Outpatient [facility] [id number] [place] 00:00:00 00:00:[address] 2022-11-26 2022-11-27 Outpatient YUMIKO, BIN [facility] [id number] [place] 00:00:00 00:00:[address] 2022-11-26 2022-11-26 Outpatient [facility] [id number] [place] 00:00:00 00:00:[address] 2022-11-26 2022-11-26 Outpatient YUMIKO, BIN [facility] [id number] [place] 00:00:00 00:00:[address] 2022-11-26 2022-11-26 Outpatient [facility] [id number] [place] 00:00:00 00:00:[address] 2022-11-25 2022-11-25 Outpatient [facility] [id number] [place] 00:00:00 00:00:[address] 2022-11-25 2022-11-25 Outpatient [facility] [id number] [place] 00:00:00 00:00:[address] 2022-11-24 2022-11-24 Outpatient [facility] [id number] [place] 00:00:00 00:00:[address] 2022-11-24 2022-11-24 Outpatient [facility] [id number] [place] 00:00:00 00:00:[address] 2022-11-21 2022-11-21 Outpatient [facility] [id number] [place] 00:00:00 00:00:[address] 2022-11-21 2022-11-21 Outpatient YUMIKO, BIN [facility] [id number] [place] 00:00:00 00:00:[address] 2022-11-21 2022-11-21 Outpatient [facility] [id number] [place] 00:00:00 00:00:[address] 2022-11-20 2022-11-20 Outpatient [facility] [id number] [place] 00:00:00 00:00:[address] 2022-11-20 2022-11-20 Outpatient MARCIO, [facility] [id number] [place] 00:00:00 00:00:00 SHAUNA Ericka [facility] 2022-11-20 2022-11-[address] [facility] [facility] [facility] [id number] [place] 00:00:00 00:00:[address] 2022-11-19 2022-11-19 Outpatient [facility] [id number] [place] 00:00:00 00:00:[address] 2022-11-19 2022-11-19 Outpatient YUMIKO, BIN [facility] [id number] [place] 00:00:00 00:00:[address] 2022-11-19 2022-11-19 Outpatient [facility] [id number] [place] 00:00:00 00:00:[address] 2022-11-18 2022-11-[address] [facility] [id number] [place] 00:00:00 00:00:[address] 2022-11-18 2022-11-18 Outpatient [facility] [id number] [place] 00:00:00 00:00:[address] 2022-11-17 2022-11-17 Outpatient YUMIKO, BIN [facility] [id number] [place] 00:00:00 00:00:[address] 2022-11-17 2022-11-17 Outpatient [facility] [id number] [place] 00:00:00 00:00:[address] 2022-11-05 2022-11-05 Outpatient JAI, [facility] [id number] [place] 00:00:00 00:00:00 JENIFFER [address] 2022-11-05 2022-11-05 Outpatient JAI, [facility] [id number] [place] 00:00:00 00:00:00 JENIFFER [address] 2022-11-05 2022-11-05 Outpatient JAI, [facility] [id number] [place] 00:00:00 00:00:00 JENIFFER [address] 2022-11-03 2022-11-03 Outpatient MARCIO, [facility] [id number] [place] 00:00:00 00:00:00 SHAUNA [address] 2022-11-03 2022-11-03 Outpatient MARCIO, [facility] [id number] [place] 00:00:00 00:00:00 SHAUNA [address] 2022-10-29 2022-10-30 Outpatient YUMIKO, BIN [facility] [id number] [place] 00:00:00 00:00:[address] 2022-10-29 2022-10-29 Outpatient GANESH [facility] [id number] [place] 00:00:00 00:00:00 TABATHA [address] 2022-10-29 2022-10-29 Outpatient YUMIKO, BIN [facility] [id number] [place] 00:00:00 00:00:[address] 2022-10-29 2022-10-29 Outpatient YUMIKO, BIN [facility] [id number] 1910 [place] 00:00:00 00:00:[address] 2022-10-28 2022-10-29 Outpatient YUMIKO, BIN [facility] [id number] [place] 00:00:00 00:00:[address] 2022-10-28 2022-10-28 Outpatient GANESH, [facility] [id number] [place] 00:00:00 00:00:00 TABATHA [address] 2022-10-28 2022-10-28 Outpatient GANESH, [facility] [id number] [place] 00:00:00 00:00:00 TABATHA [address] 2022-10-23 2022-10-23 Outpatient GANESH [facility] [id number] [place] 00:00:00 00:00:00 TABATHA [address] 2022-10-23 2022-10-23 Outpatient YUMIKO, BIN [facility] [id number] [place] 00:00:00 00:00:[address] 2022-10-23 2022-10-23 Outpatient MARCIO [facility] [id number] [place] 00:00:00 00:00:00 SHAUNA [address] 2022-10-14 2022-10-15 Outpatient MARGARITA HOLMAN [facility] [id number] [place] 00:00:00 00:00:00 421 [facility] 2022-10-13 2022-10-13 Outpatient MARCIO [facility] [id number] [place] 00:00:00 00:00:00 SHAUNA 664 [facility] i 2022-10-09 2022-10-09 Outpatient MARCIO [facility] [id number] [place] 00:00:00 00:00:00 SHAUNA 051 Method i 2022-10-09 2022-10-09 Outpatient GANESH [facility] [id number] [place] 00:00:00 00:00:00 TABATHA 138 Method i 2022-10-09 2022-10-09 Outpatient MARCIO [facility] [id number] [place] 00:00:00 00:00:00 SHAUNA 379 Method i 2022-10-07 2022-10-07 Outpatient GANESH [facility] [id number] [place] 00:00:00 00:00:00 TABATHA 762 Method i 2022-09-25 2022-09-25 Outpatient CYNTHIA CALDERON [facility] [id number] [place] 00:00:00 00:00:00 737 [facility] i 2022-09-25 2022-09-25 Outpatient MARCIO [facility] [id number] [place] 00:00:00 00:00:00 SHAUNA 351 [facility] i 2022-09-25 2022-09-25 Outpatient LAUGHLIN, [facility] [id number] 362 [place] 00:00:00 00:00:00 LUCINDA 504 Method i 2022-09-17 2022-09-17 Outpatient JAI, [facility] [id number] [place] 00:00:00 00:00:00 JENIFFER 729 Method i 2022-09-17 2022-09-17 Outpatient GANESH [facility] [id number] [place] 00:00:00 00:00:00 TABATHA 555 Method i 2022-09-09 2022-09-10 Outpatient GANESH [facility] [id number] [place] 00:00:00 00:00:00 TABATHA 206 Method i 2022-09-09 2022-09-09 Outpatient JAI, [facility] [id number] [place] 00:00:00 00:00:00 JENIFFER [address] 2022-09-08 2022-09-08 Outpatient BUCKLEY, [facility] [id number] [place] 00:00:00 00:00:00 SHAUNA [address] 2022-08-29 2022-08-31 Outpatient JAI, [place] [id number] [place] 00:00:00 00:00:00 JENIFFER [address] 2022-08-26 2022-08-26 Outpatient JAI, [facility] [id number] [place] 00:00:00 00:00:00 JENIFFER [address] 2022-08-25 2022-08-25 Outpatient BUCKLEY, [facility] [id number] [place] 00:00:00 00:00:00 SHAUNA [address] 2022-08-21 2022-08-21 Outpatient JAI, [facility] [id number] 342 [place] 00:00:00 00:00:00 JENIFFER [address] 2022-08-14 2022-08-14 Outpatient LUCINDA, [facility] [id number] [place] 00:00:00 00:00:00 DANIELA [address] 2022-08-14 2022-08-14 Outpatient LAUGHLIN, [facility] [id number] [place] 00:00:00 00:00:00 LUCINDA [address] 2022-08-14 2022-08-14 Outpatient LAUGHLIN, [facility] [id number] [place] 00:00:00 00:00:00 LUCINDA [address] 2022-08-14 2022-08-14 Outpatient LAUGHLIN, [facility] [id number] [place] 00:00:00 00:00:00 LUCINDA [address] 2022-08-12 2022-08-12 Outpatient JAI, [facility] [id number] 800 [place] 00:00:00 00:00:00 JENIFFER [address] 2022-08-08 2022-08-08 Outpatient ANDERSEN, [facility] [id number] 754 [place] 00:00:00 00:00:00 TABATHA [address] 2022-08-06 2022-08-06 Outpatient BROWN, [facility] [id number] 529 [place] 00:00:00 00:00:00 EMILIANO 372 [facility] 2022-08-01 2022-08-01 Outpatient GANESH, [facility] [id number] 728 [place] 00:00:00 00:00:00 TABATHA [address] 2022-07-29 2022-07-29 Outpatient LUCINDA, [facility] [id number] [place] 00:00:00 00:00:00 DANIELA 434 Method i 2022-07-24 2022-07-25 Outpatient GANESH, [facility] [id number] [place] 00:00:00 00:00:00 TABATHA 401 Method i 2022-07-24 2022-07-24 Outpatient GANESH, [facility] [id number] 721 [place] 00:00:00 00:00:00 TABATHA 811 Method i 2022-07-18 2022-07-18 Outpatient GANESH, [facility] [id number] 721 [place] 00:00:00 00:00:00 TABATHA 310 Method i 2022 2022 Outpatient GANESH, [facility] [id number] [place] 00:00:00 00:00:00 TABATHA 595 Method i 2022-07-10 2022-07-10 Outpatient GANESH, [facility] [id number] 430 [place] 00:00:00 00:00:00 TABATHA 434 Method i 2022-07-04 2022-07-04 Outpatient GANESH, [facility] [id number] 430 [place] 00:00:00 00:00:00 TABATHA 305 Method i 2022-06-27 2022-06-27 Outpatient GANESH, [facility] [id number] 430 [place] 00:00:00 00:00:00 TABATHA 179 Method i 2022-06-26 2022-06-26 Outpatient GANESH, [facility] [id number] 580 [place] 00:00:00 00:00:00 TABATHA 675 Method i 2022-06-26 2022-06-26 Outpatient GANESH, [facility] [id number] [place] 00:00:00 00:00:00 TABATHA 428 Method i 2022-06-24 2022-06-24 Outpatient LAUGHLIN, [facility] [id number] [place] 00:00:00 00:00:00 LUCINDA 072 Method i 2022-06-202022-06-20 [facility] [id number] [place] 00:00:00 00:00:00 TABATHA 366 Method i 2022-06-20 2022-06-20 Outpatient [facility] [id number] [place] 00:00:00 00:00:00 419 Method i 2022-06-13 2022-06-13 Outpatient GANESH [facility] [id number] [place] 00:00:00 00:00:00 TABATHA 308 Method i 2022-06-02 2022-06-08 Inpatient YESICA, [facility] [id number] [place] 00:00:00 00:00:00 YUMIKO 390 Method i 2022-06-05 2022-06-05 Outpatient FOG_Fondren AO AO [id number] [id number] [place] 00:00:00 00:00:00 _Brac_LLP [id number] Orth ope dic Sports Medicin e 2022-06-03 2022-06-03 Outpatient SCARLET Conrad AO [id number] 00:00:00 00:00:00 Luiz [id number] 2022-06-03 2022-06-03 [facility] [place] - Ortho [id number] [place] 00:00:00 00:00:00 Ashli Conrad - Or thdiandra CO: 6565 FOG_Bracing dic [place] _[facility] [place] [phone] 2022-05-29 2022-05-29 [facility] [id number] [place] 00:00:00 00:00:00 TABATHA 958 Method i 2022-05-29 2022-05-29 [facility] [id number] 421 [place] 00:00:00 00:00:00 TABATHA 548 Method i 2022-05-23 2022-05-23 [facility] [id number] [place] 00:00:00 00:00:00 TABATHA 170 Method i 2022-05-23 2022-05-23 [facility] [id number] 541 [place] 00:00:00 00:00:00 TABATHA 824 Method i 2022-05-16 2022-05-16 Outpatient ANDERSEN, [facility] [id number] [place] 00:00:00 00:00:00 TABATHA 118 Method i 2022-05-14 2022-05-14 Outpatient JAI, [facility] [id number] 562 [place] 00:00:00 00:00:00 JENIFFER 310 Method i 2022-05-14 2022-05-14 Outpatient JAI, [facility] [id number] 562 [place] 00:00:00 00:00:00 JENIFFER 350 Method i 2022-05-14 2022-05-14 Outpatient JAI, [facility] [id number] 562 [place] 00:00:00 00:00:00 JENIFFER 382 Method i 2022-05-14 2022-05-14 Outpatient JAI, [facility] [id number] 562 [place] 00:00:00 00:00:00 JENIFFER 413 Method i 2022-05-14 2022-05-14 Outpatient JAI, [facility] [id number] 562 [place] 00:00:00 00:00:00 JENIFFER 443 Method i 2022-05-14 2022-05-14 Outpatient JAI, [facility] [id number] 562 [place] 00:00:00 00:00:00 JENIFFER 476 Method i 2022-05-14 2022-05-14 Outpatient JAI, [facility] [id number] 562 [place] 00:00:00 00:00:00 JENIFFER 595 Method i 2022-05-13 2022-05-13 Outpatient JAI, [facility] [id number] 353 [place] 00:00:00 00:00:00 JENIFFER 760 Method i 2022-05-08 2022-05-08 Outpatient ANDERSEN, [facility] [id number] 379 [place] 00:00:00 00:00:00 TABATHA 047 Method i 2022-05-08 2022-05-08 Outpatient ANDERSEN, [facility] [id number] [place] 00:00:00 00:00:00 TABATHA 659 Method i 2022-05-08 2022-05-08 Outpatient ANDERSEN, [facility] [id number] 702 [place] 00:00:00 00:00:00 TABATHA 128 Method i 2022-04-29 2022-04-29 Outpatient ANDERSEN, [facility] [id number] [place] 00:00:00 00:00:00 TABATHA [address] 2022-04-17 2022-04-17 Outpatient GANESH, [facility] [id number] [place] 00:00:00 00:00:00 TABATHA [address] 2022-04-17 2022-04-17 Outpatient ANDERSEN, [facility] [id number] 366 [place] 00:00:00 00:00:00 TABATHA [address] 2022-04-15 2022-04-15 Outpatient [facility] [id number] 317 [place] 00:00:00 00:00:[address] 2022-04-02 2022-04-02 Outpatient ANDERSEN, [facility] [id number] [place] 00:00:00 00:00:00 TABATHA [address] 2022-03-27 2022-03-27 Outpatient ANDERSEN, [facility] [id number] [place] 00:00:00 00:00:00 TABATHA [address] 2022-03-27 2022-03-27 Outpatient ANDERSEN, [facility] [id number] [place] 00:00:00 00:00:00 TABATHA [address] 2022-03-06 2022-03-06 Outpatient ANDERSEN, [facility] [id number] [place] 00:00:00 00:00:00 TABATHA 215 Method i 2022-03-06 2022-03-06 Outpatient ANDERSEN, [facility] [id number] [place] 00:00:00 00:00:00 TABATHA 587 Method i 2022-03-04 2022-03-04 Outpatient R RADIOLOGY [facility] [id number] Univers 12:40:19 23:59:00 ity of [facility] 2022-03-04 2022-03-04 Hospital Radiology [facility] 1.2.840.114 [id number] Univers 12:40:19 23:59:00 Michael PALACIO 350.1.13.10 ity [facility] 4.2.7.2.686 [facility] [phone] [facility] [address] 2022-02-14 2022-02-14 Outpatient ANDERSEN, [facility] [id number] [place] 00:00:00 00:00:00 TABATHA [address] 2022-02-14 2022-02-14 Outpatient [facility] [id number] 667 [place] 00:00:00 00:00:[address] 2022-02-12 2022-02-12 Outpatient GANESH, [facility] [id number] [place] 00:00:00 00:00:00 TABATHA [address] 2022-02-06 2022-02-06 Outpatient GANESH [facility] [id number] 776 [place] 00:00:00 00:00:00 TABATHA [address] 2022-02-06 2022-02-06 Outpatient GANESH, [facility] [id number] 776 [place] 00:00:00 00:00:00 TABATHA 517 Method i 2022-02-06 2022-02-06 Outpatient GANESH, [facility] [id number] 776 [place] 00:00:00 00:00:00 TABATHA [address] 2022-02-06 2022-02-06 Outpatient GANESH, [facility] [id number] 776 [place] 00:00:00 00:00:00 TABATHA 518 Method i 2022-02-05 2022-02-05 Outpatient R DHRUV, [facility] [id number] [facility] 10:00:00 10:00:00 [facility] 2022-01-31 2022-01-31 Outpatient GANESH, [facility] [id number] [place] 00:00:00 00:00:00 TABATHA 989 Method i 2022-01-31 2022-01-31 Outpatient GANESH, [facility] [id number] [place] 00:00:00 00:00:00 TABATHA 594 Method i 2022-01-13 2022-01-13 [facility] [id number] [facility] 12:00:00 12:00:00 Yvette [id number] [facility] 2022-01-13 2022-01-13 [id number] [facility] 12:00:00 12:00:00 Yvette 80 [facility] 2022-01-09 2022-01-09 Outpatient MADELIN Ramos NANETTE [id number] [facility] 12:00:00 12:00:00 Yvette [id number] [facility] 2021-12-24 2021-12-24 Outpatient R LAZARA III, [facility] [id number] Univers 10:00:00 10:00:00 JUNIOR rosy [facility] 2021-12-24 2021-12-24 Orders Doctor SHUKLA 1.2.840.114 [id number] Univers 00:00:00 00:00:00 Only Unassigned, NOEL 350.1.13.10 ity of [facility] 4.2.7.2.686 Jaden as [phone] [address] 2021-05-28 2021-05-28 Outpatient NEVAEH, [facility] [id number] 431 [place] 00:00:00 00:00:00 YVETTE Coppola Method i 2021-05-28 2021-05-28 Outpatient NEVAEH, [facility] [id number] 431 [place] 00:00:00 00:00:00 YVETTE Wasserman Method i 2021-02-06 2021-02-06 Office hDruv [facility] 1.2.840.114 [id number] Univers 13:54:53 14:49:38 Visit Tony Palacio 350.1.13.10 i ty [facility] [place] [phone] Or dic[address] 2021-02-06 2021-02-06 Outpatient R DHRUV [facility] [id number] Univers 14:00:00 14:00:00 [facility] 2021-02-05 2021-02-05 Outpatient R DHRUV [facility] [id number] Univers 11:00:00 11:00:00 TONY [facility] 2021-02-05 2021-02-05 Patient Dhruv [facility] 1.2.840.114 [id number] Univers 00:00:00 00:00:00 Secure Msg Carmencitaashlyn Soco 350.1.13.10 ity of [place] [phone] Me dical nal [address] [place] [address] 2021-02-05 2021-02-05 Orders GAYLA Vazquez 1.2.840.114 [id number] Univers 00:00:00 00:00:00 Only Tony COHEN 350.1.13.10 it y of HOSPITAL 4.2.7.2.686 Jaden as [phone] [address] 2021-02-01 2021-02-01 [facility]phone [facility] [id number] [id number] Univers 00:00:00 00:00:00 Wentashlyn Palacio 350.1.13.10 i ty [place] [phone] Or dical nal 220 [facility] 2021-01-25 2021-01-25 [facility] 1.2.840.114 [id number] Univers 00:00:00 00:00:00 Carmencitaashlyn Palacio 350.1.13.10 i ty [place] [phone] Or dical [facility] 220 [facility] 2021-01-05 2021-01-05 Patient [place] [facility] 1.2.840.114 [id number] Univers 00:00:00 00:00:00 Outreach Jakob PRIMARY 350.1.13.10 i ty of [facility] [place]2.7.2.[place] [phone] [facility] [address] [place] 2020-08-07 2020-08-07 Office [facility] 1.2.840.114 [id number] Univers 09:58:39 10:50:05 Visit Tony Palacio 350.1.13.10 i ty [place] [phone] [facility] 220 [facility] 2020-08-07 2020-08-07 [facility] [id number] Univers 10:00:00 10:00:00 CARMENCITAONG ity of [facility] 2020-08-02 2020-08-02 Orders GAYLA Vazquez 1.2.840.114 [id number] Univers 00:00:00 00:00:00 Only Tony BERGMANY 350.1.13.10 it y of HOSPITAL 4.2.7.2.686 Jaden as [phone] [address] 2020-03-06 2020-03-06 Outpatient R DHRUV [facility] [id number] Univers 11:00:00 11:00:00 TONY ity of [facility] 2020-03-06 2020-03-06 Telemedici Dhruv [facility] 1.2.840.114 [id number] Univers 08:04:40 08:34:40 ne Visit Tony Palacio 350.1.13.10 ity [place] [phone] Or dical nal [address] [place] [address] 2019-10-10 2019-10-10 [facility] 1.2.840.114 [id number] Univers 00:00:00 00:00:00 Secure Msg Tony Palacio 350.1.13.10 ity of [place] [phone] Or dicaz nal [address] [place] [address] 2019-02-22 2019-02-22 Refill Robert [facility] 1.2.840.114 [id number] Univers 00:00:00 00:00:00 Asia Soco 350.1.13.10 i ty of [place] [phone] Or dic[address] Results Test Description Test Time Test Comments Results Result Comments Source Influenza virus A and B and 2022-12-11 17:49:05 Test Item Value Reference Range Interpretation Comme nts SARS-CoV-2 (COVID-19) RNA [Presence] in Respiratory specimen by Not detected VERENA with probe detection (test code = 12558-5) Whether patient resides in a congregate care setting (test code = N o 64631-0) Date and time of symptom onset (test code = 82682-9) Unknown Whether the patient was hospitalized for condition of interest No (test code = 43896-9) Whether the patient was admitted to intensive care unit (ICU) for N o condition of interest (test code = 06289-4) Whether patient is employed in a healthcare setting (test code = No 95143-2) Whether the patient has symptoms related to condition of interest N o (test code = 19324-3) status (test code = 71015-0) No SARY HOLLIDAYSARS-CoV-2 (COVID-19) RNA [Presence] in Respiratory specimen by VEREAN with probe [id number] 13:24:56 Test Item Value Reference Range Interpretation Comments SARS-CoV-2 (COVID-19) RNA Not detected [Presence] in Respiratory specimen by VERENA with probe detection (test code = 98522-4) Whether patient is employed in a Unknown healthcare setting (test code = 07993-4) Whether the patient has symptoms Unknown related to condition of interest (test code = 33110-1) Whether the patient was Unknown hospitalized for condition of interest (test code = 11945-4) Whether the patient was admitted Unknown to intensive care unit (ICU) for condition of interest (test code = 54689-6) Whether patient resides in a Unknown congregate care setting (test code = 57409-8) status (test code = Unknown 01089-8) Date and time of symptom onset Unknown (test code = 22384-5) SARY HOLLIDAYSARS-CoV-2 (COVID-19) RNA [Presence] in Respiratory specimen by VERENA with probe [id number] 12:28:20 Test Item Value Reference Range Interpretation Comments SARS-CoV-2 (COVID-19) RNA Not detected [Presence] in Respiratory specimen by VERENA with probe detection (test code = 94398-6) Whether patient is employed in a Unknown healthcare setting (test code = 87215-1) Whether the patient has symptoms Unknown related to condition of interest (test code = 99356-2) Whether the patient was Unknown hospitalized for condition of interest (test code = 65274-2) Whether the patient was admitted Unknown to intensive care unit (ICU) for condition of interest (test code = 01451-1) Whether patient resides in a Unknown congregate care setting (test code = 57498-1) status (test code = Unknown 62436-9) Date and time of symptom onset Unknown (test code = 87401-3) SARY KWAN HRQWMTMS-OjJ-1 (COVID-19) RNA [Presence] in Respiratory specimen by VERENA with probe [id number] 00:25:03 Test Item Value Reference Range Interpretation Comments SARS-CoV-2 (COVID-19) RNA Not detected [Presence] in Respiratory specimen by VERENA with probe detection (test code = 96680-9) Whether patient is employed in a Unknown healthcare setting (test code = 42723-0) Whether the patient has symptoms Unknown related to condition of interest (test code = 22923-3) Whether the patient was Unknown hospitalized for condition of interest (test code = 83136-5) Whether the patient was admitted Unknown to intensive care unit (ICU) for condition of interest (test code = 26041-0) Whether patient resides in a Unknown congregate care setting (test code = 84701-1) status (test code = Unknown 44604-8) Date and time of symptom onset Unknown (test code = 00252-8) SARY ROLAND2022-03-24 16:55:00 Test Item Value Reference Range Interpretation Comments SURGICAL (test code = SR) R UN DATE: 01/30/22 [facility] PAGE 1 RUN TIME: 1627 Specimen Inquiry RUN USER: INTERFACE P ATIENT: LYNN CANTU LOC: [place] U #: [id number] AGE/SX: 61/F ROOM: RE01/13/22REG DR: Yvette De León MD : 62 BED: DIS: STATUS: DEP REF TLOC: SPEC #: [id number] RECD: 01/13/22 STATUS: AVE DACOSTA #: [id number] ART: 01/13/22 [facility] DR: Yvette De León MD ENTERED: 01/13/22 SP TYPE: SURGICAL OT DR: ORDERED: ANATOMIC SPEC/3, SPEC TRACK, 36744/3, 52164-09 PROCEDURES: 61306 (01/14/22-1338) 68631-58 (01/15/22-100) TISSUES: A. BREAST BIOPSY, FEMALE LEFT - LEFT BREAST 1:00 B. LYMPH NODE AXILLARY - LEFT AXILLARY LYMPH NODE C. LYMPH NODE AXILLARY - RIGHT AXILLARY LYMPH NODE CLINICAL COMMUNICATIONS Dr. Sellers discussed the [facility] 1343. FINAL DIAGNOSIS A. BREAST, LEFT, 1:00, ULTRASOUND-GUIDED CORE BIOPSIES: - invasive ductal carcinoma, poorly differentiated, Grade 3 ([place] histologic score Tubule formation 3/3, Mitotic activity 3/3, Nuclear pleomorphism 2/3) - tumor measures at least 1.4 cm and is present on 3 of 3 cores - necrosis associated with invasive carcinoma - see Comment B. LYMPH NODE, LEFT AXILLARY, ULTRASOUND-GUIDED BIOPSY: - metastatic carcinoma present in 3 of 3 cores C. LYMPH NODE, RIGHT AXILLARY, ULTRASOUND-GUIDED BIOPSY: - metastatic carcinoma present in 5 of 5 cores Comment:The tumor cells form rows and trabeculae with occasional sheets and areas of necrosis,without microcalcifications. Mitotic figures number up to 36 in 10 high power archer. Immunohistochemistry performed on Block A1 shows diffuse strong Ecadherin(+) staining,supportive of the diagnosis. No in-situ tumor is identified. No lymphovascular invasion isidentified in the breast core biopsies, but the presence of tumor in the lymph nodebiopsies is noted. Prognostic biomarker testing on block A1 is pending, results to be reported in an addendum. CONTINUED ON NEXT PAGE R UN DATE: 01/30/22 [facility] PAGE 2 RUN TIME: 1627 Specimen Inquiry RUN USER: INTERFACE S PEC #: [id number] PATIENT: CANTULYNNCONCHITA ALVAREZ #[id number] (Continued) GROSS DESCRIPTION A. Labeled with the patient's name, designated "left breast 1:00", and received in formalinare three christie-white cores ranging from 1.7-1.9 cm in length. The specimen is entirelysubmitted in cassette A1. Total Ischemic Time: 5 minutesTotal Formalin Fixation Time: 21 hours B. Labeled with the patient's name, designated "left axillary lymph node", and received informalin are three christie-white cores ranging from 1.2-1.7 cm in length. The specimen isentirely submitted in cassette B1. Total Ischemic Time: 5 minutesTotal Formalin Fixation Time: 21 hours C. Labeled with the patient's name, designated "right axillary lymph node", and received informalin are eight christie-white cores ranging from 0.2-1.6 cm in length. The specimen isentirely submitted in cassette C1. Total Ischemic Time: 5 minutesTotal Formalin Fixation Time: 21 hours HRR Technical component performed at [facility],[id number] , [place] [address] Unless gross only, the diagnosis is based upon microscopic examination.Immunohistochemistr y: This test was developed and its performance characteristicsdetermined by this laboratory. It has not been approved nor does it need approval by [place] FDA. Appropriate positive and negative controls are reviewed and judged to beacceptable. This laboratory is certified under the Clinical Laboratory ImprovementAmendments (CLIA-88) as qualified to perform high complexity clinical laboratory testing. PREDICTIVE MARKERS Addendum #1 Entered: 01/30/22-3371 [facility] BREAST BIOMARKER REPORTINGProtocol Posting Date: August 2021 CASE SUMMARY: (Breast Biomarker Reporting Template) TEST(S) PERFORMED Estrogen Receptor (ER) Status: Negative (less than 1%), Internal control cells present andstain as expected Progesterone Receptor (PgR) Status: Negative (less than 1%), Internal control cellspresent and stain as expected CONTINUED ON NEXT PAGE R UN DATE: 01/30/22 [facility] PAGE 3 RUN TIME: 1627 Specimen Inquiry RUN USER: INTERFACE S PEC #: [id number] PATIENT: LYNN CANTU #[id number] (Continued) PREDICTIVE MARKERS (Continued) HER2 by Immunohistochemistry: Negative (Score 0) Ki-67 by Immunohistochemistry: High proliferation, 80% Cold Ischemia and Fixation Times: Meet requirements specified in latest version of theASCO / CAP Guidelines +Cold Ischemia Time (minutes): 5 min+Fixation Time (hours): 21 hours+Testing Performed on Block Number(s): A1 METHODS +Fixative: Formalin PLEASE SEE ORIGINAL REFERENCE LAB REPORT FOR DETAILS Addendum Signed SIGNATURE ON FILE Gabriela Sellerscornelia 01/30/22 1627 CLINICAL INFORMATION OSCAR SUSP. ELLIE [email or web address] 01/13/22, TIME OUT OF BODY 09:10 AM, TIME IN FORMALIN 09:15AM, TIME OUT OF FORMALIN AT 5:45 P.M., TOTAL TIME IN FORMALIN 8 HOURS 30 MINUTES ------ Signed SIGNATURE ON FILE Juwan Sellersaida 01/16/22 0259 END OF REPORT HEMOGLOBIN [id number] 04:00:00 Test Item Value Reference Interpretation Comments Range HEMOGLOBIN A1c-Q See_Comment H For someone without (test code = 4548-4) known d iabetes, a hemoglobin A1c value between 5.7% an d 6.4% is consist ent withprediabetes and should be confi rmed with a follow-u p test. For someo ne with known diab etes, a value <7%indicates that their diabetes is well controlled . [id number] shou ld be individualized based on duration ofdiabetes, age , comorbid condit ions, and otherconsiderat ions. This assay resu lt is consistent with an increased risko f diabetes. Curre ntly, no consensus ex ists regarding use ofhemoglobin A1 c for diagnosis of diabetes for children. REPOR T COMMENT:FASTING :YES [Automated mess age] The system [employer] generated this result transmit ina reference range : <5.7 % of total Hgb. The reference r angelica was not used to interpret this result as normal/abnormal . [facility] (test code = PERFORMED BY [facility]) [facility]; [address] [place] [address]; LEXIE HUFF MD Lab Interpretation Abnormal (test code = 67975-3) [facility], [id number] 03:00:00 Test Item Value Reference Range Interpretation Comments T-4, FREE-Q (test 1.7 ng/dL 0.8-1.8 code = 3024-7) [facility] (test code = PERFORMED BY [facility]; [address] [place] [address]; LEXIE HUFF MD [facility], [id number] 03:00:00 Test Item Value Reference Range Interpretation Comments TSH, 3RD GENERATION-Q See_Comment L [Auto mated (test code = 3016-3) message ] The system which generated this result transmitted reference range : 0.40 - 4.50 mIU/L. The reference range was not used to interpret this result as normal/abnormal . [facility]DI (test code = LEYDI) [facility]FORMED BY [facility]; [address] [place] [address]; LEXIE HUFF MD Lab Interpretation Abnormal (test code = 24231-7) [facility] [id number] 03:00:00 Test Item Value Reference Range Interpretation Comments T3, FREE-Q (test 3.9 pg/mL 2.3-4.2 code = 3051-0) [facility] (test code = PERFORMED [facility]) [facility]; [address] [place] [address]; LEXIE HUFF MD [facility]
[2023-04-17] MEDS ORDERED: FOLIC ACID 5 MG/ML VIAL ONE (07:27)
--- NOTE | 2023-04-17 07:34 | RAD REPORT ---
EXAM DESCRIPTION: CT - Ct Stroke Brain Wo Cont - 04/17/2023 7:26 am CLINICAL HISTORY: STROKE ALERT COMPARISON: No comparisons TECHNIQUE: Noncontrast head CT images were obtained without IV contrast. Multiplanar reformats were generated and reviewed. All CT scans are performed using dose optimization technique as appropriate and may include automated exposure control or mA/KV adjustment according to patient size. FINDINGS: No intracranial hemorrhage, mass, or edema. Midline structures are unremarkable. Normal ventricular caliber for age. Schaeffer-white matter differentiation is preserved, without evidence of acute infarct. No abnormal extra- axial fluid collections. Mastoid air cells and visualized portions of the paranasal sinuses are clear. No acute bony findings. IMPRESSION: No evidence of an acute intracranial process. The findings were communicated to Lilly Curry, ED broker in charge on 04/17/2023 at 07:30 hours.
[2023-04-17 07:56] LABS: Absolute Lymphocytes (CBC) 0.4 K/uL (0.7-4.9); Hematocrit 34.8 % (36.0-45.0); Lymphocytes % 4.5 % (15.3-44.8); MCV 114.4 fL (80-100); MPV 8.8 fL (7.6-11.3); RBC Red Blood Cell Count 3.04 M/uL (3.86-4.86)
[2023-04-17 08:00] LABS: Protime INR 1.52
[2023-04-17 08:12] LABS: Potassium 3.1 mEq/L (3.5-5.1)
--- NOTE | 2023-04-17 08:18 | RAD REPORT ---
EXAM DESCRIPTION: CT - Head angio - 04/17/2023 7:53 am CLINICAL HISTORY: WEAKNESS COMPARISON: Ct Stroke Brain Wo Cont dated 04/17/2023; Neck Angio dated 04/17/2023 TECHNIQUE: Axial CT angiography images of the head was performed with multiplanar and maximum intens ity projection reconstructions. Images performed following intravenous administration of 95mL Isovue 370. All CT scans are performed using dose optimization technique as appropriate and may include automated exposure control or mA/KV adjustment according to patient size. FINDINGS: Right M3 segment large vessel occlusion, with suspected non opacification of a posteriorly directed branch of the posteroinferior branch of the right MCA superior division, and short-segment marked caliber attenuation of a superiorly directed branch. Please see sagittal image 69/223 series 4 012 for both findings. No other evidence of large vessel occlusion. No evidence of aneurysm or dissec tion flap is detected. No flow-limiting stenosis or vascular malformation identified. Antegrade flow is seen in the vertebral arteries. The vertebral arteries are codominant. The visualized dural venous sinuses are grossly patent. IMPRESSION: Right M3 segment large vessel occlusion, and the bifurcation of the posteroinferior bran ch of the right MCA superior division, with suspected non opacification of a posteriorly directed bra nch, and short-segment marked caliber attenuation of a superiorly directed branch. The findings were communicated to Thomas Tan on 04/17/2023 at 08:12 hours.
--- NOTE | 2023-04-17 08:20 | RAD REPORT ---
EXAM DESCRIPTION: CT - Neck Angio - 04/17/2023 7:53 am CLINICAL HISTORY: weakness COMPARISON: Ct Stroke Brain Wo Cont dated 04/17/2023; Head angio dated 04/17/2023 TECHNIQUE: Axial CT angiography images of the head was performed with multiplanar and maximum intens ity projection reconstructions. Images performed following intravenous administration of 95mL Isovue 370. All CT scans are performed using dose optimization technique as appropriate and may include automated exposure control or mA/KV adjustment according to patient size. Quantification of carotid stenosis, if any, is performed according to NASCET criteria. FINDINGS: A left aortic arch is identified with normal three vessel configuration of the great vesse ls. No significant flow abnormality is seen of the common carotid bilaterally. No significant stenosis is identified involving the cervical segments of both internal carotid arteri es. Normal flow is seen within both vertebral arteries. IMPRESSION: No significant flow abnormality of the neck vessels is identified. CAROTID STENOSIS REFERENCE USING NASCET CRITERIA: % ICA stenosis = (1 - narrowest ICA diameter/diameter of distal cervical ICA) x 100. Mild - <50% stenosis. Moderate - 50-69% stenosis. Severe - 70-94% stenosis. Near occlusion - 95-99% stenosis. Occluded - 100% stenosis.
--- NOTE | 2023-04-17 08:34 | EDPHYS ---
Physician Documentation [facility] Name: Leni Gonzales Age: 62 yrs Sex: Female : 1960 Arrival Date: 04/17/2023 Time: 07:05 Bed 7 Private MD: ED Physician Thomas aTn HPI: 04/17 08:24 This 62 yrs old Female presents to ER via EMS with complaints of S/S of Possible Stroke.rn 08:24 The patient's problem is reported as weakness, in the left upper extremity, in the left rn lower extremity, in the left side of face. Onset: The symptoms/episode began/occurred yesterday. Duration: The episode is continuous. The symptoms are alleviated by nothing. The symptoms are aggravated by standing. Associated signs and symptoms: Pertinent positives: headache, Pertinent negatives: abdominal pain, chest pain, confusion. Severity of symptoms: At their worst the symptoms were moderate in the emergency department the symptoms are unchanged. The patient has not experienced similar symptoms in the past. Pt reports yesterday about 1600 began noticing slight weakness with dropping things, this AM woke up and had difficulty standing, with weakness noted LLE and left face, no vision/speech problems. No chest pain. Takes eliquis. No trauma. . Historical: - Allergies: 07:12 No Known Allergies; ld1 - Home Meds: 08:04 Eliquis 5 mg oral tablet 1 tab 2 times per day [Active]; gabapentin 300 mg oral capsule ko1 2 caps 2 times per day [Active]; prochlorperazine maleate 5 mg Oral tablet q6 hrs prn [Active]; duloxetine 60 mg oral Capsule, Delayed Release Sprinkle 1 cap daily [Active]; levothyroxine 112 mcg capsule 1 cap daily [Active]; bupropion HCl 150 mg Oral Tablet, Extended Release 24 hr 1 tab every morning [Active]; Vitamin D D3 Oral 50 mcg daily [Active]; Zofran Oral 8 mg as needed [Active]; Nexium 20 mg Oral capsule,delayed release (e.c.) 1 cap daily [Active]; - PMHx: 07:12 breast cancer; Diabetes mellitus; Depressive disorder; tremors; ld1 - PSHx: 07:12 Mastoidectomy; section; ld1 - Immunization history:: Adult Immunizations up to date, Client reports receiving the 2nd dose of the Covid vaccine. - Social history:: Smoking status: Patient denies any tobacco usage or history of. Patient/guardian denies using alcohol. - Family history:: not pertinent. - Hospitalizations: : No recent hospitalization is reported. ROS: 08:24 Constitutional: Negative for fever, chills, and weight loss, Neck: Negative for injury, rn pain, and swelling, Cardiovascular: Negative for chest pain, palpitations, and edema, Respiratory: Negative for shortness of breath, cough, wheezing, and pleuritic chest pain, Abdomen/GI: Negative for abdominal pain, nausea, vomiting, diarrhea, and constipation, Back: Negative for injury and pain, MS/Extremity: Negative for injury and deformity, Skin: Negative for injury, rash, and discoloration, Neuro: Negative for numbness, tingling, and seizure. Exam: 08:24 Constitutional: This is a well developed, well nourished patient who is awake, alert, rn and in no acute distress. Head/Face: Normocephalic, atraumatic. Eyes: Pupils equal round and reactive to light, extra-ocular motions intact. Cardiovascular: Regular rate and rhythm. No pulse deficits. Respiratory: No increased work of breathing, no retractions or nasal flaring. Abdomen/GI: soft, non-tender Skin: Warm, dry with normal turgor. Normal color with no rashes, no lesions, and no evidence of cellulitis. MS/ Extremity: Pulses equal, no cyanosis. Neuro: Awake and alert, GCS 15, oriented to person, place, time, and situation. + left lower facial weakness, + LUE weakness with drift, + LLE weakness with drift but more strength then LUE. Sensation intact. Gait not tested. 09:14 ECG was reviewed by the Attending Physician. rn Vital Signs: 07:07 BP 128 / 86; Pulse 101; Resp 18; Temp 97.6(O); Pulse Ox 98% on R/A; Weight 62.6 kg; ld1 Height 5 ft. 2 in. ; Pain 0/10; 07:41 BP 116 / 73; Pulse 94; Resp 18; Pulse Ox 98% on R/A; ld1 07:07 Body Mass Index 25.24 (62.60 kg, 157.48 cm) ld1 07:07 Pain Scale: Adult ld1 NIH Stroke Scale Scores: 07:15 NIHSS Score: 3 ld1 08:24 NIHSS Score: 3 rn MDM: 07:09 Patient medically screened. rn 08:24 Differential diagnosis: CVA, TIA, metabolic disorder. Data reviewed: vital signs, rn nurses notes, lab test result(s), EKG, radiologic studies, CT scan, and as a result, I will admit patient. Consideration of Admission/Observation Patient was admitted/placed on observation. Escalation of care including admission/observation considered. Counseling: I had a detailed discussion with the patient and/or guardian regarding: the historical points, exam findings, and any diagnostic results supporting the discharge/admit diagnosis, lab results, radiology results, the need to transfer to another facility, for higher level of care, [facility] does not immediately have the required specialist, Patient request. ED course: Patient outside of window, on eliquis, CTA shows distal LVO, will transfer to medical center for further stroke management given cannot administer TNKase. [facility]. . 04/17 07:10 Order name: Basic Metabolic Panel; Complete Time: 08:16 rn 04/17 07:10 Order name: CBC with Diff rn 04/17 07:10 Order name: High Sensitivity Troponin; Complete Time: 08:16 rn 04/17 07:10 Order name: Protime (+inr); Complete Time: 08:16 rn 04/17 07:10 Order name: Ptt, Activated; Complete Time: 08:16 rn 04/17 07:51 Order name: Glucose, Ancillary Testing; Complete Time: 08:16 EDMT 04/17 08:14 Order name: CREATININE WHOLE BLOOD; Complete Time: 08:16 EDMT 04/17 07:10 Order name: CT Stroke Brain w/o Contrast; Complete Time: 08:16 rn 04/17 07:10 Order name: Stroke CXR 1 View; Complete Time: 08:58 rn 04/17 07:10 Order name: Head Angio CT; Complete Time: 08:33 rn 04/17 07:10 Order name: Neck Angio CT; Complete Time: 08:33 rn 04/17 07:10 Order name: Accucheck; Complete Time: 07:13 rn 04/17 07:10 Order name: Cardiac monitoring; Complete Time: 07:13 rn 04/17 07:10 Order name: EKG - Nurse/Tech; Complete Time: 07:13 rn 04/17 07:10 Order name: IV Saline Lock; Complete Time: 07:41 rn 04/17 07:10 Order name: Labs collected and sent; Complete Time: 07:41 rn 04/17 07:10 Order name: NPO; Complete Time: 07:11 rn 04/17 07:10 Order name: O2 Per Protocol; Complete Time: 07:11 rn 04/17 07:10 Order name: O2 Sat Monitoring; Complete Time: 07:11 rn 04/17 07:10 Order name: Stroke Swallow Screen; Complete Time: 07:16 rn EC:14 Rate is 89 beats/min. Rhythm is regular. QRS Mobile is Normal. OK interval is normal. QRS rn interval is normal. QT interval is normal. No Q waves. T waves are Normal. No ST changes noted. Clinical impression: NSR w/ Non-specific ST/T Changes. Interpreted by me. Reviewed by me. Administered Medications: :41 Drug: foLIC Acid IVPB 1 mg Route: IVPB; Site: right antecubital; ld1 Point of Care Testing: Blood Glucose: 07:13 Blood Glucose: 180 mg/dL; ld1 Ranges: Critical Glucose Levels:Adult <50 mg/dl or >400 mg/dl <40 mg/dl or >180 mg/dl Disposition Summary: 04/17/23 08:32 Transfer Ordered Transfer Location: [facility] rn Reason: Higher level of care rn Condition: Stable rn Problem: new rn Symptoms: are unchanged rn Accepting Physician: (04/17/23 09:16) ko1 Diagnosis - Cerebral infarction, unspecified rn - Weakness rn Forms: - Medication Reconciliation Form rn - SBAR form rn NIH Stroke Scale - NIH Stroke Score Date: 04/17/2023 Time: 07:15 Total Score = 3 10. Dysarthria (speech clarity - read or repeat words) - 0(Normal) 11. Extinction and Inattention (visual/tactile/auditory/spatial/personal) - 0(No abnormality) 1a. Level of Consciousness (LOC) - 0(Alert) 1b. Level of Consciousness (LOC) (Month \T\ Age) - 0(Both) 1c. LOC Commands (Open \T\ Closes Eyes/Precision Dyer) - 0(Both) 2. Best Gaze (Lateral Gaze Paresis) - 0(Normal) 3. Visual Field Loss - 0(No visual loss) 4. Facial Palsy - 1(Minor Paralysis) 5a. Left Arm: Motor (10-second hold) - 1(Drift) 5b. Right Arm: Motor (10-second hold) - 0(No drift) 6a. Left Leg: Motor (5-second hold - always test supine) - 1(Drift) 6b. Right Leg: Motor (5-second hold - always test supine) - 0(No drift) 7. Limb Ataxia (finger/nose \T\ heel/maciel - test with eyes open) - 0(Absent) 8. Sensory Loss (pinprick arms/legs/face) - 0(Normal) 9. Best Language: Aphasia (description/naming/reading) - 0(No aphasia) Initials: ld1 NIH Stroke Scale - NIH Stroke Score Date: 04/17/2023 Time: 08:24 Total Score = 3 10. Dysarthria (speech clarity - read or repeat words) - 0(Normal) 11. Extinction and Inattention (visual/tactile/auditory/spatial/personal) - 0(No abnormality) 1a. Level of Consciousness (LOC) - 0(Alert) 1b. Level of Consciousness (LOC) (Month \T\ Age) - 0(Both) 1c. LOC Commands (Open \T\ Closes Eyes/Precision Dyer) - 0(Both) 2. Best Gaze (Lateral Gaze Paresis) - 0(Normal) 3. Visual Field Loss - 0(No visual loss) 4. Facial Palsy - 1(Minor Paralysis) 5a. Left Arm: Motor (10-second hold) - 1(Drift) 5b. Right Arm: Motor (10-second hold) - 0(No drift) 6a. Left Leg: Motor (5-second hold - always test supine) - 1(Drift) 6b. Right Leg: Motor (5-second hold - always test supine) - 0(No drift) 7. Limb Ataxia (finger/nose \T\ heel/maciel - test with eyes open) - 0(Absent) 8. Sensory Loss (pinprick arms/legs/face) - 0(Normal) 9. Best Language: Aphasia (description/naming/reading) - 0(No aphasia) Initials: rn Signatures: Dispatcher [employer] EDThomas Dumont MD MD rn Sims, Lauren, RN RN ld1 Alyssa Spear RN RN ko1 Corrections: (The following items were deleted from the chart) 08:15 07:13 Home Meds: Eliquis 5 mg oral tablet once; ld1 ko1 09:16 08:32 Dr. arndt ko1
--- NOTE | 2023-04-17 08:34 | ER ---
Nurse's Notes [facility] Name: Leni Gonzales Age: 62 yrs Sex: Female : 1960 Arrival Date: 04/17/2023 Time: 07:05 Bed 7 Private MD: Diagnosis: Cerebral infarction, unspecified;Weakness Presentation: 04/17 07:07 Chief complaint:. Chief complaint: EMS states: toned out to patient home for s/s of ld1 possible stroke. Pt reports falling at 1600 yesterday - pt is on blood thinners, denies pain, denies hitting head. Coronavirus screen: At this time, the client does not indicate any symptoms associated with coronavirus-19. Ebola Screen: No symptoms or risks identified at this time. No acute neurological deficit is noted. The patients blood glucose was checked prior to arriving to the hospital and was found to be hyperglycemic. Initial Sepsis Screen: Does the patient meet any 2 criteria? No. Patient's initial sepsis screen is negative. Does the patient have a suspected source of infection? No. Patient's initial sepsis screen is negative. Risk Assessment: Do you want to hurt yourself or someone else? Patient reports no desire to harm self or others. Onset of symptoms was April 17, 2023. 07:07 Method Of Arrival: EMS: [facility] ld1 07:07 Acuity: BILLY 3 ld1 Triage Assessment: 07:13 The onset of the patients symptoms was more than six hours ago. General: Appears in no ld1 apparent distress. comfortable, Behavior is calm, cooperative, appropriate for age. Pain: Denies pain. EENT: No signs and/or symptoms were reported regarding the EENT system. Neuro: Level of Consciousness is awake, alert, obeys commands, Oriented to person, place, time, situation, Bistro Server are weak on left Weakness in left arm(s) leg(s) Gait is unsteady, Speech is normal, Facial droop on left. Cardiovascular: Capillary refill < 3 seconds Patient's skin is warm and dry. Rhythm is sinus rhythm. Respiratory: Airway is patent Respiratory effort is even, unlabored. GI: Abdomen is round non-distended. : No signs and/or symptoms were reported regarding the genitourinary system. Derm: No signs and/or symptoms reported regarding the dermatologic system. Musculoskeletal: No signs and/or symptoms reported regarding the musculoskeletal system. 09:15 The onset of the patients symptoms was more than six hours ago. ko1 09:16 The onset of the patients symptoms was April 16, 2023 at 16:00. Neuro: Reports weakness ko1 in left side. Stroke Activation: Symptom onset > 6 hours Physician: Stroke Attending; Name: ; Notified At: ; Arrived At: Physician: Chief Stroke Resident; Name: ; Notified At: ; Arrived At: Physician: Stroke Resident; Name: ; Notified At: ; Arrived At: Physician: ED Attending; Name: ; Notified At: ; Arrived At: Physician: ED Resident; Name: ; Notified At: ; Arrived At: Historical: - Allergies: 07:12 No Known Allergies; ld1 - Home Meds: 08:04 Eliquis 5 mg oral tablet 1 tab 2 times per day [Active]; gabapentin 300 mg oral capsule ko1 2 caps 2 times per day [Active]; prochlorperazine maleate 5 mg Oral tablet q6 hrs prn [Active]; duloxetine 60 mg oral Capsule, Delayed Release Sprinkle 1 cap daily [Active]; levothyroxine 112 mcg capsule 1 cap daily [Active]; bupropion HCl 150 mg Oral Tablet, Extended Release 24 hr 1 tab every morning [Active]; Vitamin D D3 Oral 50 mcg daily [Active]; Zofran Oral 8 mg as needed [Active]; Nexium 20 mg Oral capsule,delayed release (e.c.) 1 cap daily [Active]; - PMHx: 07:12 breast cancer; Diabetes mellitus; Depressive disorder; tremors; ld1 - PSHx: 07:12 Mastoidectomy; section; ld1 - Immunization history:: Adult Immunizations up to date, Client reports receiving the 2nd dose of the Covid vaccine. - Social history:: Smoking status: Patient denies any tobacco usage or history of. Patient/guardian denies using alcohol. - Family history:: not pertinent. - Hospitalizations: : No recent hospitalization is reported. Screenin:15 [facility] ED Fall Risk Assessment (Adult) History of falling in the last 3 months, ld1 including since admission Yes- single mechanical fall (1 pt). Abuse screen: Denies threats or abuse. Denies injuries from another. Nutritional screening: No deficits noted. Tuberculosis screening: No symptoms or risk factors identified. Assessment: 07:15 VAN Scoring: Arm Drift: Patients demonstrates NO arm weakness. Patient is VAN Negative. ld1 TNKase (Tenecteplase) Screening: Contraindications: Patient reports onset of signs and symptoms of stroke greater than 6 hours ago: Yes. Reassessment: See triage assessment. Vital Signs: 07:07 BP 128 / 86; Pulse 101; Resp 18; Temp 97.6(O); Pulse Ox 98% on R/A; Weight 62.6 kg; ld1 Height 5 ft. 2 in. ; Pain 0/10; 07:41 BP 116 / 73; Pulse 94; Resp 18; Pulse Ox 98% on R/A; ld1 07:07 Body Mass Index 25.24 (62.60 kg, 157.48 cm) ld1 07:07 Pain Scale: Adult ld1 NIH Stroke Scale Scores: 07:15 NIHSS Score: 3 ld1 08:24 NIHSS Score: 3 internist Course: 07:07 Patient arrived in ED. ld1 07:09 Thomas Tan MD is Attending Physician. rn 07:10 Alyssa Spear, TARA is Primary Nurse. ko1 07:12 Triage completed. ld1 07:13 Arm band placed on right wrist. ld1 07:15 Patient has correct armband on for positive identification. Placed in gown. Bed in low ld1 position. Call light in reach. Side rails up X2. nurse monitoring on. Pulse ox on. NIBP on. Door closed. Noise minimized. 07:15 No provider procedures requiring assistance completed. ld1 07:28 CT Stroke Brain w/o Contrast In Process Unspecified. EDMS 07:41 Inserted saline lock: 20 gauge in right antecubital area, using aseptic technique. ld1 Blood collected. 07:[address] In Process Unspecified. EDMS 07:[address] In Process Unspecified. EDMS 08:25 transfer initiated with [facility]. em1 08:29 Stroke CXR 1 View In Process Unspecified. EDMS 08:42 Acceptance and approval given by Edwin Mcneal at [facility]; [facility] hospital em1 requests pt be transported via [facility]; [facility] dispatch contacted and they advised that an aircraft will be dispatched and arrive in approximately 9 minutes. 09:00 Patient transferred, IV remains in place. ko1 09:13 Report given to TARA Ortez at [facility]. ko1 Administered Medications: 07:41 Drug: foLIC Acid IVPB 1 mg Route: IVPB; Site: right antecubital; ld1 Medication: 07:15 VIS not applicable for this client. ld1 Point of Care Testing: Blood Glucose: 07:13 Blood Glucose: 180 mg/dL; ld1 Ranges: Outcome: 08:32 ER care complete, transfer ordered by MD. arndt 09:13 Transferred by helicopter [facility]. to [facility], Transfer form ko1 completed. X-rays sent w/ patient. 09:13 Condition: stable 09:13 Instructed on the need for transfer. 09:16 Patient left the ED. ko1 NIH Stroke Scale - NIH Stroke Score Date: 04/17/2023 Time: 07:15 Total Score = 3 10. Dysarthria (speech clarity - read or repeat words) - 0(Normal) 11. Extinction and Inattention (visual/tactile/auditory/spatial/personal) - 0(No abnormality) 1a. Level of Consciousness (LOC) - 0(Alert) 1b. Level of Consciousness (LOC) (Month \T\ Age) - 0(Both) 1c. LOC Commands (Open \T\ Closes Eyes/Oracle Wms Consultant) - 0(Both) 2. Best Gaze (Lateral Gaze Paresis) - 0(Normal) 3. Visual Field Loss - 0(No visual loss) 4. Facial Palsy - 1(Minor Paralysis) 5a. Left Arm: Motor (10-second hold) - 1(Drift) 5b. Right Arm: Motor (10-second hold) - 0(No drift) 6a. Left Leg: Motor (5-second hold - always test supine) - 1(Drift) 6b. Right Leg: Motor (5-second hold - always test supine) - 0(No drift) 7. Limb Ataxia (finger/nose \T\ heel/maciel - test with eyes open) - 0(Absent) 8. Sensory Loss (pinprick arms/legs/face) - 0(Normal) 9. Best Language: Aphasia (description/naming/reading) - 0(No aphasia) Initials: ld1 NIH Stroke Scale - NIH Stroke Score Date: 04/17/2023 Time: 08:24 Total Score = 3 10. Dysarthria (speech clarity - read or repeat words) - 0(Normal) 11. Extinction and Inattention (visual/tactile/auditory/spatial/personal) - 0(No abnormality) 1a. Level of Consciousness (LOC) - 0(Alert) 1b. Level of Consciousness (LOC) (Month \T\ Age) - 0(Both) 1c. LOC Commands (Open \T\ Closes Eyes/Oracle Wms Consultant) - 0(Both) 2. Best Gaze (Lateral Gaze Paresis) - 0(Normal) 3. Visual Field Loss - 0(No visual loss) 4. Facial Palsy - 1(Minor Paralysis) 5a. Left Arm: Motor (10-second hold) - 1(Drift) 5b. Right Arm: Motor (10-second hold) - 0(No drift) 6a. Left Leg: Motor (5-second hold - always test supine) - 1(Drift) 6b. Right Leg: Motor (5-second hold - always test supine) - 0(No drift) 7. Limb Ataxia (finger/nose \T\ heel/maciel - test with eyes open) - 0(Absent) 8. Sensory Loss (pinprick arms/legs/face) - 0(Normal) 9. Best Language: Aphasia (description/naming/reading) - 0(No aphasia) Initials: rn Signatures: Dispatcher [employer] EDThomas Dumont MD MD rn Martinez, Eric emDeepali Richards RN RN ld1 Alyssa Spear RN RN ko1 Corrections: (The following items were deleted from the chart) 08:15 07:13 Home Meds: Eliquis 5 mg oral tablet once; ld1 ko1
--- NOTE | 2023-04-17 08:50 | RAD REPORT ---
EXAM DESCRIPTION: RADChest Single View04/17/2023 8:27 am CLINICAL HISTORY: left sided weakness COMPARISON: Chest Single View dated 06/01/2022 TECHNIQUE: Portable AP view of the chest. FINDINGS: The lungs are clear. Right chest wall port unchanged in position. Surgical clips in the bi le axilla. No pneumothorax or effusion. The cardiomediastinal contours are unremarkable. IMPRESSION: No acute cardiopulmonary process.
[2023-04-17 09:15] LABS: White Blood Cell Scan OK (OK)
[2023-04-17 09:16] LABS: Blood Morphology Comment NOTED (NOT SEEN); Macrocytosis 2+; Platelet Estimate ADEQ
[2023-04-17 09:25] VITALS: TEMP 97.6; O2SAT 98
[2023-04-17 09:36] VITALS: BP 116/73
--- NOTE | 2023-04-20 17:18 | EKG ---
Test Date: 2023-04-17 Test Time: 07:36:11 [employer] Appellate [employer] Clerk: DAYDAY MEASUREMENT RESULTS: Intervals: Rate: 89 ID: [id number] QRSD: 78 QT: 282 QTc: 343 [place]: P: 76 ID: [id number] QRS: 48 T: 79 INTERPRETIVE STATEMENTS: Normal sinus rhythm Nonspecific T wave abnormality Abnormal ECG Compared to ECG 06/01/2022 18:38:29 T-wave abnormality now present Electronically Signed On 04-20-23 17:12:30 CDT by Barrie Rees
== END 2023-04-17 09:16 | disposition short-term general hospital (02) ==
LOC: ER 07:05
DX: I63.9 Cerebral infarction, unspecified (principal); R29.703 NIHSS score 3; E11.9 Type 2 diabetes mellitus without complications; F32.A Depression, unspecified; Z85.3 Personal history of malignant neoplasm of breast
CPT/HCPCS: 85025; 80048; 36415; 85610; 82565; 82947; 85730; 84484; 70496; 70498; 70450; 71045; 96374; 99285; Q9967; 93005